=== PATIENT | female | born 1975 | race Caucasian/White ===

== ENCOUNTER 2022-05-12 16:58 | Emergency (ER) | payer BC, SELFPAY ==
[2022-05-12 17:13] VITALS: BP 137/83; PULSE 82; RESP 18; TEMP 36.3; O2SAT 100
--- NOTE | 2022-05-12 17:49 | ED.SKABFB ---
HPI - Skin/Abscess/Foreign Bdy General Chief complaint: Skin/Abscess/Foreign Body Stated complaint: rash on forehead Time Seen by Provider: 05/12/22 17:40 Source: patient Mode of arrival: ambulatory Limitations: no limitations History of Present Illness HPI narrative: Patient presents today complaining of redness and swelling between her eyebrows x4 days. Denies pain, but does report some itching. She has been taking some allergy medication without relief. History of diabetes. Denies history of staph infections, abscesses, boils. She has been recently plucking her eyebrows. Related Data Home Medications Medication Instructions Recorded Confirmed atorvastatin 40 mg tablet 40 mg PO DAILY 05/12/22 05/12/22 insulin aspart U-100 100 unit/mL See Rx Instructions .Route .COMPLEX 05/12/22 05/12/22 subcutaneous solution insulin degludec 100 unit/mL (3 34 unit subcut DAILY 05/12/22 05/12/22 mL) subcutaneous pen (Tresiba FlexTouch U-100 insulin) lisinopril 10 mg tablet 10 mg PO DAILY 05/12/22 05/12/22 metformin 500 mg tablet,extended 2,000 mg PO DAILY 05/12/22 05/12/22 release 24 hr Allergies Allergy/AdvReac Type Severity Reaction Status Date / Time niacin Allergy Unknown Flushing Verified 05/12/22 17:19 PMFSH Family History Family History Mother Diabetes mellitus Father Family history of colonic diverticulitis Other Cerebrovascular accident Family history of cardiovascular disease Family history of malignant neoplasm Family history of thyroid disease Social History Social History Smoking status: Current every day smoker Alcohol intake: current Comments At time of signature, I have reviewed and agree with nursing past medical, surgical, social and family history unless otherwise noted. Please see nursing chart for further information. There is no relevant family history pertinent to the presenting complaint Exam Narrative: GENERAL: Well-appearing, well-nourished, and in no acute distress. HEAD: Normocephalic, atraumatic. EYES: EOMI. No redness or drainage. Conjunctivae normal. ENT: Mucous membranes pink and moist. NECK: Normal AROM. CHEST: No respiratory distress. EXTREMITIES: Normal range of motion. No edema. SKIN: Warm, dry. Capillary refill normal. Normal skin turgor. 1.5 x1.5cm area of mild erythema and induration to the forehead, in between the eyebrows. No fluctuance. Three small superficial abrasions to this area as well. No pustules, vesicles, or drainage. Nontender to palpation. NEURO: No focal deficits. Alert and oriented x3. Gait steady. PSYCH: Normal affect. No signs of depression or anxiety. Course Course Level of Care: Express Care Visit Vital Signs Vital signs: Vital Signs Temperature 97.4 F L 05/12/22 17:13 Pulse Rate 82 05/12/22 17:13 Respiratory Rate 18 05/12/22 17:13 Blood Pressure 137/83 05/12/22 17:13 Pulse Oximetry 100 05/12/22 17:13 Oxygen Delivery Room Air 05/12/22 17:13 Temperature 97.4 F L 05/12/22 17:13 Pulse Rate 82 05/12/22 17:13 Respiratory Rate 18 05/12/22 17:13 Blood Pressure 137/83 05/12/22 17:13 Pulse Oximetry 100 05/12/22 17:13 Oxygen Delivery Room Air 05/12/22 17:13 Reviewed. Pt has been instructed to follow up with her PCP regarding her elevated blood pressure today. MDM - Skin/Abscess/Foreign Bdy Differential Diagnosis Differential diagnosis: Likely abscess of skin or subcutaneous tissue, dermatophytosis, cellulitis, eczema, impetigo and contact dermatitis Critical Care Time Critical Care Time Critical Care Time: No Discharge Plan Discharge Clinical Impression: Cellulitis of forehead Patient Disposition: Home, Self-Care Condition: Stable Instructions: Antibiotic Form, Cellulitis (ED) Additional Instructions: Please take the clindamycin as prescribed
== END 2022-05-12 17:56 | disposition home or self-care (01) ==
PROVIDERS: Emergency Provider Nurse Practitioner; PCP Nurse Practitioner
DX: L03.211 Cellulitis of face (principal); F17.200 Nicotine dependence, unspecified, uncomplicated
CPT/HCPCS: 99213; G0463

== ENCOUNTER 2023-08-22 21:06 | Emergency (ER) | payer BC, SELFPAY ==
--- NOTE | ~2023-08-22 | CT_ITS ---
EXAMINATION: CT abdomen pelvis w con DATE: 08/23/2023 00:37 INDICATION: Diffuse abdominal pain, nausea and vomiting TECHNIQUE: Computed tomography (CT) of the abdomen and pelvis was performed with 100 mL Omnipaque-350 intravenous contrast. Automated exposure control and iterative reconstruction technique were employe d. The dose-length product was 363.00 mGy-cm. COMPARISON: Pelvis CT dated 03/18/2018 FINDINGS: Mild mosaic attenuation at the bilateral lung bases. Heart size is normal. No pericardial or pleural effusion. Liver, gallbladder, spleen, pancreas, bilateral adrenal glands and kidneys are normal. Mild diverticulosis without adjacent inflammatory stranding to suggest diverticulitis. Small bowel and ap pendix are normal. There are several enhancing masses in the uterus most likely representing uterine fibroids. The largest measures 11.0 x 8.6 cm which is significantly increased since the prior study a t which time it measured 3.1 x 2.5 cm. The next largest measures 2.7 cm in maximal diameter. Bladder and bilateral adnexa are normal. No free intraperitoneal gas or fluid. No pathologically enlarged abd ominal or pelvic lymphadenopathy. . IMPRESSION: 1. No acute intra-abdominal/pelvic process. 2. Fibroid uterus with significant interval enlargement of a now 11 cm uterine fibroid. Reviewed, dictated and finalized at location A.
[2023-08-22 21:43] LABS: Glucose Point of Care 125 mg/dl (65-105)
[2023-08-22 21:57] VITALS: BP 115/57; PULSE 78; RESP 14; TEMP 36.7; O2SAT 99
[2023-08-22 22:27] LABS: Basophils Percent Auto 0.4 % (0.2-1.2); Eosinophils Percent Auto 0.4 % (0-4.4); Hemoglobin 8.5 g/dL (12.0-15.0); Immature Granulocyte Absolute 0.04 K/mm3 (0.00-0.031); Immature Granulocyte Percent A 0.4 % (0-0.5); Lymphocytes Absolute Auto 0.62 K/mm3 (0.9-3.2); Lymphocytes Percent Auto 6.9 % (18.3-44.2); Mean Corpuscular HGB Conc 30.4 g/dl (32-36); Mean Corpuscular Hemoglobin 25.1 pg (26-34); Mean Corpuscular Volume 82.8 fl (80-100); Mean Platelet Volume 11.6 fl (7.4-10.4); Monocytes Absolute Auto 0.4 K/mm3 (0.1-0.6); Monocytes Percent Auto 4.9 % (2.6-8.5); Neutrophils Absolute Auto 7.8 K/mm3 (1.3-6.7); Platelet Count Result 198 k/mm3 (150-375); Red Blood Count 3.38 M/mm3 (4.2-5.4); Red Cell Distribution Width 14.6 % (11.5-14.5); White Blood Count 8.9 K/mm3 (4.5-10.0)
[2023-08-22 22:36] LABS: Alanine Aminotransferase 15 U/L (6-35); Albumin Level 4.3 g/dL (3.5-5.1); Alkaline Phosphatase 74 U/L (38-126); Anion Gap 13 mmol/L (8-16); Aspartate Amino Transferase 25 U/L (14-36); Bilirubin,Total 0.3 mg/dL (0.2-1.3); Blood Urea Nitrogen 4 mg/dL (7-17); Calcium 8.9 mg/dL (8.4-10.2); Carbon Dioxide 19 mmol/L (22-30); Chloride 111 mmol/L (98-107); Estimated CRCL calculation 90 ml/min; Estimated Glomerular Filt Rate > 60; Glucose 79 mg/dL (65-110); Lipase 173 U/L (23-300); Potassium 3.1 mmol/L (3.4-5.0); Sodium 143 mmol/L (137-145)
[2023-08-22 23:33] VITALS: BP 104/64; PULSE 69; RESP 14; O2SAT 99
[2023-08-22 23:46] LABS: Magnesium 2.2 mg/dL (1.6-2.3)
[2023-08-22] MEDS: KCL 20 MEQ/SW 100 ML 100 ML 50 MEQ IVPB (23:48)
[2023-08-22] MEDS: SODIUM CHLORIDE 0.9% IV 1,000 ML 999 ML IV CONT (23:48)
[2023-08-23 00:36] LABS: Influenza A QL RT-PCR Negative (Negative); Influenza B QL RT-PCR Negative (Negative); RSV RNA, RT-PCR Negative (Negative); SARS-CoV-2 RNA PCR Negative (Negative)
--- NOTE | 2023-08-23 00:43 | ED.NAVMDI ---
HPI - Nausea/Vomiting/Diarrhea General Chief complaint: Nausea/Vomiting/Diarrhea Stated complaint: VOMITING/WEAKNESS Time Seen by Provider: 08/22/23 23:28 Source: patient Mode of arrival: EMS Limitations: no limitations History of Present Illness HPI Narrative: Patient is a 48-year-old female who presents the ED via EMS with report of nausea/vomiting. Patient reports has not felt well for the last 3 weeks. She reports having intermittent nausea and vomiting, usually upon waking up. Reports intermittent diarrhea, subjective fevers, urinary frequency. States she was recently started on mounjaro for her diabetes, but states the symptoms have been ongoing since before starting the mounjaro. Tonight, she was getting ready to eat dinner when she began having nausea and vomiting. She reported profuse vomiting. She then felt very weak and fatigued and states she was unable to get up off the ground at her house. EMS was then contacted. Patient is feeling improved currently. Denies further nausea. Reports lower and mid abdominal pain. Reports mild lightheadedness. Denies cough or cold symptoms, syncope, rectal bleeding, melena, chest pain, shortness of breath. Patient does admit to drinking 2 glasses of whiskey tonight. Patient is currently on her menstrual cycle. Denies possibility of . Related Data Home Medications Medication Instructions Recorded Confirmed insulin degludec 100 unit/mL (3 34 unit subcut DAILY 05/12/22 07/15/23 mL) subcutaneous pen (Tresiba FlexTouch U-100 insulin) lisinopril 10 mg tablet 10 mg PO DAILY 05/12/22 07/15/23 aspirin 81 mg tablet,delayed 81 mg PO DAILY 07/15/23 07/15/23 release (Adult Low Dose Aspirin) atorvastatin 40 mg tablet 40 mg PO QHS 07/15/23 07/15/23 cholecalciferol (vitamin D3) 1,250 1,250 mcg PO WEEKLY 07/15/23 07/15/23 mcg (50,000 unit) capsule insulin aspart U-100 100 unit/mL 10 unit subcut QPM 07/15/23 07/15/23 (3 mL) subcutaneous pen (Novolog FlexPen U-100 Insulin aspart) insulin syringe-needle U-100 1 mL 07/15/23 07/15/23 30 gauge x 5/16 metformin 500 mg tablet,extended 1,000 mg PO BID 07/15/23 07/15/23 release 24 hr paroxetine HCl [Paxil] 20 tablet PO 07/15/23 07/15/23 Allergies Allergy/AdvReac Type Severity Reaction Status Date / Time niacin Allergy Unknown Flushing Verified 07/15/23 08:10 Review of Systems Review of Systems: CONSTITUTIONAL: Reports subjective fever. CARDIOVASCULAR: Denies chest pain. RESPIRATORY: Denies dyspnea. GASTROINTESTINAL: See HPI. GENITOURINARY: See HPI. MUSCULOSKELETAL: Denies back pain, extremity pain, myalgia. NEUROLOGIC: Reports mild lightheadedness. Denies headache, numbness, or weakness. All systems reviewed & are unremarkable except as noted in HPI and below PMFSH Past Medical History Medical History Diabetes Surgical History Surgical History H/O myomectomy Family History Family History Mother Diabetes mellitus Father Family history of colonic diverticulitis Other Cerebrovascular accident Family history of cardiovascular disease Family history of malignant neoplasm Family history of thyroid disease Social History Social History Smoking status: Current every day smoker Alcohol intake: current Alcohol use details: Twice weekly Substance use: never Exam Narrative: GENERAL: Well appearing, obese with BMI of 30.3, non-toxic, in no acute distress. HEAD: Normocephalic, atraumatic. RESPIRATORY: Airway patent, respirations nonlabored. Clear to auscultation bilaterally, no rales, rhonchi, wheezing. CARDIOVASCULAR: Regular rate and rhythm ABDOMINAL: Soft, diffuse lower abdominal tenderness to palpation. Nondistended. Normoactive BS.
[2023-08-23 01:10] VITALS: PULSE 72; RESP 19; O2SAT 96
[2023-08-23] MEDS: SODIUM CHLORIDE 0.9% IV 1,000 ML 999 ML IV CONT (01:46)
[2023-08-23 02:16] LABS: Appearance Urine Clear (Clear); Bacteria Urine None Seen /hpf; Bilirubin Urine Negative (Negative); Blood Urine 1+ (Negative); Color Urine Yellow (Yellow); Glucose Urine UA Negative (Negative); Ketones Urine Negative (Negative); Leukocyte Esterase Ur Negative LEU/UL (Negative); Nitrate Urine Negative (Negative); Non Pathogenic Casts 0-2; Protein Urine Negative (Negative); RBC Urine 0-2 /hpf (0-2); Squamous Epithelial Cell Urine None Seen /hpf (Few); Urobilinogen Urine 0.2 mg/dL (<2.0); WBC Urine 0-5 /hpf (0-3); pH Urine 5.5 (5.0-9.0)
[2023-08-23 02:18] LABS: Add Urine Microscopic? YES; Specific Grav Ur 1.072 (1.001-1.035)
[2023-08-23] MEDS: POTASSIUM CHLORIDE 20 MEQ ER TABLET PO (02:22)
[2023-08-23 02:25] VITALS: BP 116/59; PULSE 60; RESP 16; O2SAT 99
[2023-08-23 02:45] VITALS: PULSE 71; RESP 19; O2SAT 98
[2023-08-23 03:00] VITALS: BP 90/54; PULSE 73; RESP 19; O2SAT 97
[2023-08-23 03:31] VITALS: BP 101/50; PULSE 71; RESP 14; O2SAT 97
[2023-08-23 03:46] VITALS: BP 107/62; PULSE 71; RESP 20; O2SAT 98
== END 2023-08-23 04:30 | disposition home or self-care (01) ==
PROVIDERS: Physician Assistant; Emergency Provider Emergency Medicine; PCP Nurse Practitioner
DX: K52.9 Noninfective gastroenteritis and colitis, unspecified (principal); E87.6 Hypokalemia; D64.9 Anemia, unspecified; Z20.822 Contact with and (suspected) exposure to COVID-19; E11.9 Type 2 diabetes mellitus without complications; F17.200 Nicotine dependence, unspecified, uncomplicated; Z79.85 Long-term (current) use of injectable non-insulin antidiabetic drugs; Z79.84 Long term (current) use of oral hypoglycemic drugs; Z79.4 Long term (current) use of insulin
CPT/HCPCS: 36415; 74177; 80053; 81025; 82948; 83690; 83735; 85025; 87637; 96361; 96365; 96366; 99284; A9270; J3480; J7030; Q9967

== ENCOUNTER 2024-10-17 20:52 | Emergency (ER) | payer BC, SELFPAY ==
--- NOTE | ~2024-10-17 | XR_ITS ---
EXAM: XR foot LT min 3V DATE: 10/17/2024 22:11 HISTORY: bruising, warmth and swelling. no injury . COMPARISON: None available. FINDINGS: Normal mineralization. No fracture or dislocation. No lytic or blastic lesion. Joint space s are maintained. Mild Achilles and plantar enthesopathy. No erosion or periosteal change. Forefoot s oft tissue swelling. IMPRESSION: No acute osseous finding in the left foot. Reviewed, dictated and finalized at location K.
--- OUTSIDE RECORDS SUMMARY | 2024-10-17 20:54 | XMS_ITS | Referral Summary ---
Author Organization [facility] Address [address] [place] [address] Care Team Providers Care Clerk Of Court Name Role Phone Sarita Liang GIOVANI Primary Care Provider [phone] Denver Trinidad DO Unavailable [phone] Allergies Active Allergy Reactions Criticality Noted Date Comments Niacin Hives Medium 11/07/2014 Niacin Unknown 05/12/2024 Medications atorvastatin (LIPITOR) 40 mg tablet Take 1 tablet (40 mg total) by mouth nightly Active lisinopriL (PRINIVIL,ZESTR IL) 10 mg tablet Take 1 tablet (10 mg total) by mouth nightly Active metFORMIN (GLUCOPHAGE) 500 mg tablet Take 2 tablets (1,000 mg total) by mouth 2 (two) times a day with meals Active insulin aspart (NovoLOG) 100 unit/mL (3 mL) pen for injection Inject 5 Units under the skin 3 (three) times a day Active PARoxetine (PAXIL) 20 mg tablet Take 1 tablet (20 mg total) by mouth nightly Active insulin degludec (TRESIBA) 100 unit/mL (3 mL) pen for injection Inject 0.24 mL (24 Units total) under the skin nightly Active ibuprofen (ADVIL,MOTRIN) 600 mg tabletIndicatio ns:Pain,Postope rative Acute Pain Take 1 tablet (600 mg total) by mouth every 6 (six) hours as needed for pain 40 tablet 1 4 Active oxyCODONE (ROXICODONE) 5 mg immediate release tabletIndicatio ns:Pain Take 1 tablet (5 mg total) by mouth every 6 (six) hours as needed for pain 4 Active senna-docusate (PERICOLACE) 8.6-50 mg Take 1 tablet by mouth 2 (two) times a day for 10 days 20 tablet 4 Active ferrous sulfate 325 mg (65 mg of elemental iron) tabletIndicatio ns:Iron Deficiency Anemia Take 1 tablet (325 mg total) by mouth daily with breakfast 30 tablet 4 05/27/20 25 Active Active Problems Problem Noted Date Diagnosed Date Acute blood loss anemia 05/27/2024 Status post abdominal hysterectomy 05/26/2024 Intramural leiomyoma of uterus 05/25/2024 Type 2 diabetes mellitus wit hout complication, with long-term current use of insulin 05/25/2024 Cigarette nicotine dependence without complicati on 05/25/2024 Social History Tobacco Use Types Packs/Day Years Used Date Smoking Tobacco: Every Day Cigarettes Tobacco Cessation:Ready to Q uit: Not Asked; Counseling Given: Not Answered [facility] Tresata Answer Date Recorded In the past 12 months has twidox, gas, oil, or water [facility] threatened to shut off services in your home? No 05/27/2024 Social Connection and Isolat ion Panel [NHANES] Answer Date Recorded In a typical week, how many times do you talk on the phone with family, friends, or neighbors? More than three times a week 05/27/2024 How often do you get togethe r with friends or relatives? More than three times a week 05/27/2024 How often do you attend chur or gnosticist services? 1 to 4 times per year 05/27/2024 Do you belong to any clubs o r organizations such as scientologist groups, unions, fraternal or athletic groups, or school groups? No 05/27/2024 How often do you attend meet ings of the clubs or organizations you belong to? Never 05/27/2024 Are you , , di vorced, , never , or living with a partner? Living with partner 05/27/2024 AUDIT-C Answer Date Recorded Q1: How often do you have a drink containing alc ohol? 2-3 times a week 05/20/2024 Q2: How many drinks containi ng alcohol do you have on a typical day when you are drinking? 1 or 2 05/20/2024 Q3: How often do you have si x or more drinks on one occasion? Less than monthly 05/20/2024 Overall Financial Resource Strain (CARDIA) Answe r Date Recorded How hard is it for you to pa y for the very basics like food, housing, medical care, and heating? Not very hard 05/27/2024 Hunger Vital Sign Answer Date Recorded Within the past 12 months, y ou worried that your food would run out before you got the money to buy more. Never true 05/27/20 24 Within the past 12 months, t he food you bought just didn't last and you didn't have money to get more. Never true 05/27/2024 PRAPARE - Transportation Answer Date Re corded In the past 12 months, has l ack of transportation kept you from medical appointments or from getting medications? No 05/09 In the past 12 months, has l ack of transportation kept you from meetings, work, or from getting things needed for daily living? No 05/27/2024 Housing Stability Vital Sign Answer Mauricio e Recorded In the last 12 months, was t here a time when you were not able to pay the mortgage or rent on time? No 05/27/2024 In the past 12 months, how m any times have you moved where you were living? 0 05/27/2024 At any time in the past 12 m [facility], were you homeless or living in a skilled nursing (including now)? No 05/27/2024 Personal Safety Answer Date Recorded Have you ever been in or are you currently in a harmful physical or emotional relationship or is someone making you feel afraid or unsafe? Denies 05/26/2024 Comments No Sex and Gender Information Value Date Recorded Sex Assigned at Not on file Legal Sex Female 10:04 AM GLOVE BRUSHER Gender Identity Female 05/24/2024 8:43 AM GLOVE BRUSHER Sexual Orientation Not on file Last Filed Vital Signs Vital Sign Reading Time Taken Comments Blood Pressure 130/75 05/28/2024 8:31 AM GLOVE BRUSHER Pulse 70 05/28/2024 5:00 AM GLOVE BRUSHER Temperature 37.1 C (98.8 F) 05/28/2024 8:31 AM GLOVE BRUSHER Respiratory Rate 18 05/28/2024 8:31 AM GLOVE BRUSHER Oxygen Saturation 97% 05/28/2024 8:31 AM GLOVE BRUSHER Inhaled Oxygen Concentration - - Weight 68.6 kg (151 lb 3.8 oz) 05/26/2024 3:59 P M GLOVE BRUSHER Height 154.9 cm (5' 1 ) 05/26/2024 3:59 PM GLOVE BRUSHER Body Mass Index 28.58 05/26/2024 3:59 PM GLOVE BRUSHER Plan of Treatment Not on file Procedures Procedure Name Priority Date/Time Associated Diagnosis Comments EGFR Routine 05/27/2024 4:21 AM GLOVE BRUSHER HEMOGLOBIN A1C Routine 05/23/2024 10:03 AM GLOVE BRUSHER Preop testing from Last 3 Months or Most Recently Relevant to Health Maintenance Results * eGFR (05/27/2024 4:21 AM GLOVE BRUSHER) eGFR >90 >=60 mL/min/1. 73 m2 Comment: Interpretive Data Reference Interval Normal >/= 90 mL/min/1.73m2 Mildly decreased* 60 - 89 mL/min/1.73m2 Mildly to moderately decreased 45 - 59 mL/min/1.73m2 Moderately to severely decreased 30 - 44 mL/min/1.73m2 Severely decreased 15 - 29 mL/min/1.73m2 Kidney Failure < 15 mL/min/1.73m2 *Relative to young adult level Estimated glomerular filtration rate is determined by the 2020 CKD-EPI equation recommended by the National Kidney Foundation (A Unifying Approach to GFR Estimation: Recommendations of the NKF-ASK Task Force on Reassessing the Inclusion of Race in Diagnosing Kidney Disease, JASN 2020). The CKD-EPI equation should not be used for patients with unstable renal function and has not been validated in children and those over 70. Current interpretive data was last reviewed 2021. Testing performed by: [facility], [address] [place] [address], [place]., [address] Blood 05/27/2024 4:21 AM GLOVE BRUSHER 05/27/2024 4:50 AM GLOVE BRUSHER Katerin Barksdale MD LAB BLOOD ORDERABLES Amber l Result Performing Organization Address [facility]/ZIP Co de Phone Number [place] [id number] [place] [address] * (ABNORMAL) Hemoglobin A1c (05/23/2024 10:03 AM GLOVE BRUSHER) Hgb A1C 6.6(H) 4.0 - 5.6 % Comment:Testing performed by : [address] [address] Estimated Average Glucose 143 mg/dL [facility] Comment: The ADA recommends reporting an estimated Average Glucose (eAG) with all Hemoglobin A1c results using the equation derived from a study of 507 normal and diabetic adults. Minority populations were underrepresented and children were not included. (Diabetes Care 31:3336-3291, 2008). The eAG is not equivalent to a fasting glucose. Testing performed by: [address] [address] Blood 05/23/2024 10:0 3 AM GLOVE BRUSHER 05/23/2024 10:15 AM GLOVE BRUSHER Narrative [facility] - 05/23/2024 10:58 AM GLOVE BRUSHER PRE SURGICAL TESTING ONLY--05/26/2024-TOTAL ABDOMINAL HYSTERECTOMY WITH BILATERAL SALPINGECTOMY: -Surgeons and Role: * Katerin Barksdale MD - Primary- Joaquin Cuellar MD LAB BLOOD ORDERABLES Final Resul t Performing Organization Address 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
--- OUTSIDE RECORDS SUMMARY | 2024-10-17 20:54 | XMS_ITS | Clinical Summary ---
Author Organization [facility] Address [facility] [place] [address] Care Team Providers Care Actor Understudy Name Role Phone Gladys Liang GIOVANI Primary Care Provider [phone] Allergies Active Allergy Reactions Criticality Noted Date Comments Niacin Unknown,Hives Medium 11/07/2014 Medications aspirin EC (ECOTRIN) 81 MG tablet Take 1 tablet (81 mg total) by mouth. Active Lancets Misc by Other route daily. 12/25/19 17 Active Insulin Syringe-Needle U-100 (INSULIN SYRINGE 1CC/30GX5/16 ) 30G X 5/16 1 ML MiscIndications:Uncontro lled type 2 diabetes mellitus with hyperglycemia (CMS/HCC HHS/HCC) TID 300 each 3 09/20/19 22 Active metFORMIN ER (GLUCOPHAGE-XR) 500 MG 24 hr tabletIndications:Uncont rolled type 2 diabetes mellitus with hyperglycemia (CMS/HCC HHS/HCC) TAKE 4 TABLETS BY MOUTH DAILY DIRECTED 180 tablet 1 01/07/20 22 Active B-D ULTRAFINE III SHORT PEN 31G X 8 MM MiscIndications:Uncontro lled type 2 diabetes mellitus with hyperglycemia (CMS/HCC HHS/HCC) USE DIRECTED DAILY 100 each 3 02/13/20 22 Active Blood Glucose Monitoring Suppl (ONE TOUCH ULTRA 2) w/Device KitIndications:Uncontrol led type 2 diabetes mellitus with hyperglycemia (CMS/HCC HHS/HCC) 1 each by Other route daily. 1 kit 08/07/19 23 Active atorvastatin (LIPITOR) 40 MG tabletIndications:Pure hypertriglyceridemia TAKE 1 TABLET(40 MG) BY MOUTH EVERY NIGHT AT BEDTIME 90 tablet 3 03/23/20 23 Active lisinopril (PRINIVIL) 10 MG tabletIndications:Hypert ension, unspecified type TAKE 1 TABLET(10 MG) BY MOUTH DAILY 90 tablet 3 03/23/20 23 Active insulin aspart (NOVOLOG) 100 UNIT/ML injection (VIAL) Inject into the skin 3 (three) times daily before meals. Active Insulin Degludec (TRESIBA) 100 UNIT/ML Solution Active azithromycin (ZITHROMAX) 250 MG tabletIndications:Upper respiratory tract infection, unspecified type Take 2 tablets by mouth on day one then 1 daily for four days. 6 tablet 09/10/19 Active PARoxetine (PAXIL) 30 MG tabletIndications:Anxiet y Take 1 tablet (30 mg total) by mouth every morning. 90 tablet 1 09/10/19 25 025 Active Active Problems Problem Noted Date Diagnosed Date Primary hypertension 02/04/2022 Uncontrolled type 2 diabetes mellitus with hyperglycemia ([facility]) 12/13/2018 Cfbijtj-xj-snj 11/25/2018 Intramural leiomyoma of uterus 03/01/2018 S/P myomectomy 03/01/2018 Abnormal mammogram 12/01/2017 Nodular goiter 04/01/2017 Neuropathy 01/22/2017 Numbness of right anterior thigh 12/22/2016 URI, acute 07/23/2016 Bloating 07/17/2016 Sciatic pain, right 04/24/2016 Vitamin D deficiency 04/20/2015 GERD (gastroesophageal reflux disease) 5 Irritable bowel 04/11/2015 Fatigue 11/28/2014 Hand tingling 11/28/2014 Leg hematoma 11/28/2014 Dyslipidemia 04/12/2014 Fatty liver 04/12/2014 Resolved Problems Problem Noted Date Diagnosed Date Resolved Date Pure hyperglyceridemia 12/13/201804/23 Hyperlipidemia 04/28/2016 07/23/2022 Elevated TSH 04/28/2016 07/23/2022 Increased glucose level 04/28/201607/09 Encounter for screening mamm ogram for malignant neoplasm of breast 04/24/2016 02/24/2022 Diabetes mellitus ([facility]) 04/12/2014 07/23/2022 Encounters Date Type Department Care Team Description 09/09/2024 9:40 AM CDT Office Visit [address] [address] Gladys Liang NP Shoulder (Pt c/o of collar bone pain for about two weeks. 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 and has been having the pain since) 09/09/2024 Travel 09/06/[address] [address] Gladys Liang NP Information from Last 3 Months Immunizations Immunization Administration Dates Next Due Fluzone 6 Months+ Quad (0.5 mL Prefilled Syringe ) 05/16/2022,03/29/2020 MMR 10/13/2017 MMR (Generic) 10/13/2017 Pneumococcal (Pneumovax 23) 11/23/2019 Pneumococcal(Ppv 23)Aka Pneumovax 11/23/2019 Family History Medical History Relation Comments Diabetes Father Diabetes Mother Thyroid Disease Sister Relation Status Comments Father Mother Alive Sister Social History Tobacco Use Types Packs/Day Years Used Date Smoking Tobacco: Some Days Cigarettes 0.5 15 Smokeless Tobacco: Never Tobacco Cessation:Ready to Q uit: Yes; Counseling Given: Yes Alcohol Use Standard Drinks/Week Comments Yes 8 (1 standard drink = 0.6 oz pur e alcohol) socially PHQ-2 Answer Date Recorded Patient Health Questionnaire-2 Score 4 09/09/2024 Comments No Sex and Gender Information Value Date Recorded Sex Assigned at Female 09/09/2024 9:49 AM CDT Legal Sex Female 8:01 PM CDT Gender Identity Female 09/09/2024 9:49 AM CDT Sexual Orientation Not on file Last Filed Vital Signs Vital Sign Reading Time Taken Comments Blood Pressure 120/78 09/09/2024 10:09 AM CDT Pulse 83 09/09/2024 9:55 AM CDT Temperature 36.4 C (97.6 F) 09/09/2024 9:55 AM CDT Respiratory Rate 16 09/09/2024 9:55 AM CDT Oxygen Saturation 99% 09/09/2024 9:55 AM CDT Inhaled Oxygen Concentration - - Weight 69.4 kg (153 lb) 09/09/2024 9:55 AM CDT Height 154.9 cm (5' 1 ) 09/09/2024 9:55 AM CDT Body Mass Index 28.91 09/09/2024 9:55 AM CDT Plan of Treatment Upcoming Encounters Date Type Department Care Team (Tammy flores Contact Info) Description 12/14/2024 8:00 AM CDT Office Visit [facility] - [place] [address] [place] [address] Gladys Liang NP [address] [place] [address] Health Maintenance Due Date Last Done Comments Colorectal Cancer Screening Colonoscopy (10 Years) 1976 Kidney Health Evaluation 1976 Diabetes: Retinopathy Eye Exam 1994 DTaP, Tdap and Td Vaccines (1 - Tdap) 1995 Hepatitis B Vaccines (1 of 3 - 19+ 3-dose series) 1995 Pneumococcal Vaccine: Pediatrics (0 to 5 Years) and At-Risk Patients (6 to 49 Years) (2 of 2 - PCV) 11/22/2020 11/23/2019, 11/23/2019 COVID-19 Vaccine (1 - 2023- season) 2024 Mammogram Screening 04/26/2024 04/26/2022, 12/14/2019, 12/03/2017, Additional history exists Annual Physical 06/18/2024 06/18/2023 Lipid Panel 06/18/2024 06/18/2023, 07/10, 01/29/2022, Additional history exists Hemoglobin A1C 11/21/2024 05/23/2024, 06/08, 07/31/2022, Additional history exists Hepatitis C Completed 04/24/2016, 04/08, 04/11/2015 PHQ-2 (Physician [place]) Completed 09/09/2024 Meningococcal B Vaccine Aged Out No l onger eligible based on patient's age to complete this topic Meningococcal Vaccine Aged Out No rosemary michel eligible based on patient's age to complete this topic RSV Immunizations Under 20 Months Aged Out No longer eligible based on patient's age to complete this topic Procedures Procedure Name Priority Date/Time Associated Diagnosis Comments LIPID PANEL Routine 06/18/2023 9:51 AM LOGGING OPERATIONS INSPECTOR Uncontrolled type 2 diabetes mellitus with hyperglycemia Other fatigue HEMOGLOBIN, GLYCOSYLATED Routine 06/18/2023 Uncontrolled type 2 diabetes mellitus with hyperglycemia MG SCREENING W SHAHEED HENRY DIGI Routine 04/26/2022 11:14 AM LOGGING OPERATIONS INSPECTOR Encounter for screening mammogram for malignant neoplasm of breast HEPATITIS C ANTIBODY Routine 04/24/2016 9:30 AM LOGGING OPERATIONS INSPECTOR from Last 3 Months or Most Recently Relevant to Health Maintenance Results * (ABNORMAL) LIPID PANEL (06/18/2023 9:51 AM LOGGING OPERATIONS INSPECTOR) CHOLESTEROL 145 100 - 199 mg/dL [facility] 1 TRIGLYCERIDES 162(H) 0 - 149 mg/dL [facility] HDL 41 >39 mg/dL [facility] 1 VLDL CALCULATION 28 5 - 40 mg/dL [facility] 1 LDL (CALCULATED) 76 0 - 99 mg/dL [facility] 1 06/18/2023 9:51 AM LOGGING OPERATIONS INSPECTOR 06/18/2023 Narrative [facility] - 06/20/2023 2:09 PM LOGGING OPERATIONS INSPECTOR Performed at: 01 - [facility] [address] [id number] Tan Room Supervisor: Chip Ayala PhD, Phone: [phone] Gladys Liang NP LABORATORY Final Result [facility] [address] [place] [address] [facility] * A1C (BACK OFFICE) (06/18/2023) HGB A1C 6.4 % [facility] 06/18/2023 Gladys Liang NP LABORATORY Final Result Performing Organization Address City/[facility]/ZIP Co de Phone Number [facility] [address] [place] [address], [place] [phone] * MG SCREENING W SHAHEED HENRY DIGI (04/26/2022 11:14 AM LOGGING OPERATIONS INSPECTOR) Anatomical Region Laterality Modality Breast Bilateral Mammography 04/28/2022 10:2 8 AM LOGGING OPERATIONS INSPECTOR Narrative 04/28/2022 10:28 AM LOGGING OPERATIONS INSPECTOR EXAMINATION: Digital bilateral screening mammogram with 3-D tomosynthesis EXAM DATE/TIME: 04/26/2022 10:54 AM REASON FOR EXAM: screening COMPARISON: December 2019, November 2017 TECHNIQUE: Digital screening mammography of both breasts was performed in addition to 3-D Tomosynthesis technique. This study was read with the assistance of a computer-aided detection system. TISSUE DENSITY: There are scattered areas of fibroglandular density. FINDINGS: No suspicious masses, malignant appearing calcifications, skin thickening or other abnormalities are present. No significant change from the prior exam. =====IMPRESSION:===== No mammographic findings suggestive of malignancy ASSESSMENT: ACR BI-RADS 2 - BENIGN FINDING(S) Recommendation: 1: Routine Screening Bilateral COMMENTS: Ordered By: GLADYS LIANG Interpreted By: Naif Reilly MD, 04/28/2022 10:28 AM Gladys Liang NP MAMMO Final Result * HEPATITIS C ANTIBODY (04/24/2016 9:30 AM LOGGING OPERATIONS INSPECTOR) HEPATITIS C AB NON-REACTIVE TESTING PERFORMED AT [address] [address] NR [facility] TO EPIC CONVERSION 04/24/2016 9:30 AM LOGGING OPERATIONS INSPECTOR 04/24/2016 9:30 AM LOGGING OPERATIONS INSPECTOR Narrative [facility] EP[facility] CONVERSION - 04/25/2016 5:52 PM LOGGING OPERATIONS INSPECTOR Result Communication: Call patient with results Gladys Liang [facility] Final Result [facility] TO EP[facility] CONVERSION from Last 3 Months or Most Recently Relevant to Health Maintenance Insurance [facility] Care Teams Actor Understudy Relationship Specialty Start Date End Date [place] [address] PCP - General NURSE PRACTITIONER 11/23/19
--- OUTSIDE RECORDS SUMMARY | 2024-10-17 20:54 | XMS_ITS | Clinical Summary ---
Author Organization [facility] Address [address] [place] [address] Care Team Providers Care Brain Surgeon Name Role Phone Sarita Liang GIOVANI Primary Care Provider [phone] Denver Trinidad DO Unavailable [phone] Allergies Active Allergy Reactions Criticality Noted Date [...] Cigarette nicotine dependence without complicati on 05/25/2024 Surgical History Surgery Date Site/Laterality Comments HEMORROIDECTOMY MYOMECTOMY ABDOMINAL APPROACH Medical History Medical History Date Comments Diabetes (HCC) Type 2 diabetes mellitus (HCC) Social History Tobacco Use Types Packs/Day Years Used Date Smoking Tobacco: Every Day Cigarettes Tobacco Cessation:Ready to Q uit: Not Asked; Counseling Given: Not Answered [facility] [employer] Answer Date Recorded In the past 12 months has e [employer], gas, oil, or water [employer] [place] threatened to shut off services in your [...] 05/27/2024 How often do you attend chur ch or scientology services? 1 to 4 times per year 05/27/2024 Do you belong to any clubs o r organizations such as rastafari groups, unions, fraternal or athletic groups, or [...] any time in the past 12 [facility], were you homeless or living in a snf (including now)? No 05/27/2024 Personal Safety Answer Date Recorded Have you ever been in or are you currently in a harmful physical or emotional relationship or is someone making you feel afraid or unsafe? Denies 05/26/2024 Comments No Sex and Gender Information Value Date Recorded Sex Assigned at Not on file Legal Sex Female 10:04 AM SCARF GLUER Gender Identity Female 05/24/2024 8:43 AM SCARF GLUER Sexual Orientation Not on file Obstetrics History Last Filed Vital Signs Vital Sign Reading Time Taken Comments Blood Pressure 130/75 05/28/2024 8:31 AM SCARF GLUER Pulse 70 05/28/2024 5:00 AM SCARF GLUER Temperature 37.1 C (98.8 F) 05/28/2024 8:31 AM SCARF GLUER Respiratory Rate 18 05/28/2024 8:31 AM SCARF GLUER Oxygen Saturation 97% 05/28/2024 8:31 AM SCARF GLUER Inhaled Oxygen Concentration - - Weight 68.6 kg (151 lb 3.8 oz) 05/26/2024 3:59 P M SCARF GLUER Height 154.9 cm (5' 1 ) 05/26/2024 3:59 PM SCARF GLUER Body Mass Index 28.58 05/26/2024 3:59 PM SCARF GLUER Plan of Treatment Health Maintenance Due Date Last Done Comments Albumin Creatinine Ratio, Urine 1976 Cervical Cancer Screening 1976 Colon Cancer Screening-Colonoscopy 1976 Depression Screening 1976 Hepatitis C Screening 1976 Dilated Eye Exam 1976 Foot Exam 1976 DTaP/Tdap/Td Vaccine (1 - Tdap) 1987 Hepatitis B Screening 1994 Regular Well Visit/Exam 18-64 1994 Pneumococcal vaccine <65 (2 of 2 - PCV) 11/22/2020 11/23/2019 Breast Cancer Screening-Mammogram 04/26/2023 04/26/2022, 04/26/2022, 12/14/2019, Additional history exists Covid-19 Vaccine (6 - 2023-2 5 season) 2024 03/09/2023, 03/27/2022, 05/30/2021, Additional history exists Lipid Panel 06/18/2024 06/18/2023 Hemoglobin A1C 11/21/2024 05/23/2024 Influenza Vaccine (Season Ended) 2025 05/16/20 22, 03/29/2020 eGFR 05/27/2025 05/27/2024, 05/23/2024 Procedures Procedure Name Priority Date/Time Associated Diagnosis Comments EGFR Routine 05/27/2024 4:21 AM SCARF GLUER HEMOGLOBIN A1C Routine 05/23/2024 10:03 AM SCARF GLUER Preop testing from Last 3 Months or Most Recently Relevant to Health Maintenance Results * eGFR (05/27/2024 4:21 AM SCARF GLUER) eGFR >90 >=60 mL/min/1. 73 m2 Comment: [...] was last reviewed 2021. Testing performed by: [address] [address] Blood 05/27/2024 4:21 AM SCARF GLUER 05/27/2024 4:50 AM SCARF GLUER us Katerin Barksdale MD LAB BLOOD ORDERABLES Amber l Result [facility] [address] [facility] Department [place] [address] * (ABNORMAL) Hemoglobin A1c (05/23/2024 10:03 AM SCARF GLUER) Hgb A1C 6.6(H) 4.0 - 5.6 % Comment:Testing performed by : [address] [address] Estimated Average Glucose 143 mg/dL [facility] Comment: The ADA recommends reporting an estimated Average Glucose (eAG) with all Hemoglobin A1c results using the equation derived from a study of 507 normal and diabetic adults. Minority populations were underrepresented and children were not included. (Diabetes Care 31:9711-0462, 2007). The eAG is not equivalent to a fasting glucose. Testing performed by: [facility], [address] [place] [address], [place]., [address] Blood 05/23/2024 10:0 3 AM SCARF GLUER 05/23/2024 10:15 AM SCARF GLUER May RICARDO - 05/23/2024 10:58 AM SCARF GLUER PRE SURGICAL TESTING ONLY--05/26/2024-TOTAL ABDOMINAL HYSTERECTOMY WITH BILATERAL SALPINGECTOMY: -Surgeons and Role: * Katerin Barksdale MD - Primary- us Joaquin Cuellar MD LAB BLOOD ORDERABLES Final Resul t [facility] [address] [facility] Department [place] [address] from Last 3 Months or Most Recently Relevant to Health Maintenance Insurance [place] Advance Directives For more information, please contact: [phone] Documents on File Type Date Recorded Patient Board Runner Expl anation ADVANCE DIRECTIVE 05/26/2024 9:58 AM Sharif r of Production Line Manager-Medical * Full Code (Latest Code Status on File) Date Activated Date Inactivated Comments 05/26/2024 3:49 PM 05/28/2024 2:48 PM Care Teams Brain Surgeon Relationship Specialty Start Date End Date [place] [address] PCP - General Marine Operations Coordinator 05/23/24 [place] [address] 05/13/24
--- OUTSIDE RECORDS SUMMARY | 2024-10-17 20:55 | XMS_ITS | Clinical Summary ---
Author Organization [facility] Project Manager Address [address] [place] [address] Care Team Providers Care Manager Motor Name Role Phone Denver Trinidad Primary Care Provider Source Comments [facility] Project Manager,non-owned Affiliates and Associated Physician Practices is amultiple site organization consisting of ambulatory clinics and hospital sitesin [place], [place], [place] and [place]. This disclosure is being madepursuant to the Care Everywhere program and may not contain all information available regarding this patient. Last updated 18.[facility] Project Manager Allergies Active Allergy Reactions Criticality Noted Date Comments Niacin Urticaria Medium 10/13/2017 Medications * Be aware that medications may not be up to date on this document. Alwaysverify current medications with the patient. NOVOLOG vial INJ 20 UNITS SC QAM AND 10 UNITS QPM WITH SUPPER 1 12/25/2017 Active YURIDIA CONTOUR NEXT TEST test strip once daily 2 10/16/2017 Active NOVOLIN N vial INJECT 14 UNITS UNDER THE SKIN QAM AND 20 UNITS QPM B SUPPER 1 12/28/2017 Active Insulin Syringe-Needle U-100 (INSULIN SYRINGE 1CC/30GX5/16 ) 30G X 5/16 1 ML MISC USE TO INJECT UTD 3 01/11/2018 Active metFORMIN ER 24hr (GLUCOPHAGE XR) 500 MG tablet TK 1 T PO BID 1 01/05/2018 Active Aspirin (ASPIR-81 PO) Take 81 mg by mouth once daily Active Active Problems Problem Noted Date Diagnosed Date Gugntzf-ty-pzo 11/25/2018 Intramural leiomyoma of uterus 03/01/2018 S/P myomectomy 03/01/2018 Immunizations Immunization Administration Dates Next Due MMR 10/13/2017 Family History Medical History Relation Name Comments CAD (Coronary Artery Disease) Father Diabetes - Type 2 Father Diabetes - Type 2 Maternal Grandmother Diabetes - Type 1 Mother Relation Name Status Comments Father Maternal Grandmother Mother Alive Social History Tobacco Use Types Packs/Day Years Used Date Smoking Tobacco: Former Cigarettes Smokeless Tobacco: Never Alcohol Use Standard Drinks/Week Comments No 0 (1 standard drink = 0.6 oz pur e alcohol) Comments No Sex and Gender Information Value Date Recorded Sex Assigned at Not on file Legal Sex Female 6:13 PM CDT Gender Identity Not on file Sexual Orientation Not on file Last Filed Vital Signs Vital Sign Reading Time Taken Comments Blood Pressure 141/91 11/25/2018 1:38 PM CDT Pulse 92 11/25/2018 1:38 PM CDT Temperature 37.1 C (98.7 F) 11/25/2018 1:38 PM CDT Respiratory Rate 18 03/02/2018 11:53 AM CDT Oxygen Saturation 98% 11/25/2018 1:38 PM CDT Inhaled Oxygen Concentration - - Weight 78 kg (172 lb) 11/25/2018 1:38 PM CDT Height 154.9 cm (5' 1 ) 11/25/2018 1:38 PM CDT Body Mass Index 32.5 11/25/2018 1:38 PM CDT Plan of Treatment Health Maintenance Due Date Last Done Comments COLOGUARD (AGES 45-75) - COLON CA SCREENING 1976 COLON MONITORING 1976 COLONOSCOPY - COLON CA SCREENING 1976 CT COLONOGRAPHY - COLON CA SCREENING 1976 Colorectal Cancer Screening 1976 FIT - COLON CA SCREENING 1976 FLEX SIG - COLON CA SCREENING 1976 LIPID TESTING 1976 MAMMOGRAM 1976 HIV SCREENING 1991 HEPATITIS C SCREENING 07/28/1994 DTAP/TDAP/TD VACCINES (1 - Tdap) 1995 HEPATITIS B VACCINE (1 of 3 - 19+ 3-dose series) 1995 SCREENING FOR DIABETES 03/02/2021 8, 03/02/2018, 03/02/2018, Additional history exists COVID-19 VACCINE (1 - 2023- season) 2024 DEPRESSION SCREENING 06/08/2024 INFLUENZA VACCINE (Season Ended) 2025 ZOSTER VACCINE (1 of 2) 2026 HIB VACCINE Aged Out No longer eligi ble based on patient's age to complete this topic HPV VACCINE Aged Out No longer eligi ble based on patient's age to complete this topic MENINGOCOCCAL (Group B) VACCINE SHARED DECISION-MAKING Aged Out No longer eligible based on patient's age to complete this topic MENINGOCOCCAL GROUPS A/C/Y/W VACCINE Aged Out No longer eligible based on patient's age to complete this topic PNEUMOCOCCAL VACCINE Aged Out No long er eligible based on patient's age to complete this topic Procedures Procedure Name Priority Date/Time Associated Diagnosis Comments GLUCOSE - POINT OF CARE Routine 03/02/2018 12:08 AM CDT from Last 3 Months or Most Recently Relevant to Health Maintenance Results * (ABNORMAL) GLUCOSE - POINT OF CARE (03/02/2018 12:08 AM CDT) [facility] Glucose WB/POC 147(H) 70 - 106 mg/dL 03/02/2018 8:08 AM CDT [facility] Blood BLOOD SPECIMEN / Unknown 03/02/2018 12:08 AM CDT 03/02/2018 8:08 AM CDT Reinaldo Joshua MD LAB - POINT OF CARE ORDERABLES Final Result [facility] [address] [place] [address] from Last 3 Months or Most Recently Relevant to Health Maintenance Insurance ANTHEM ANTHEM Advance Directives Documents on File Type Date Recorded Patient Physician Executive Expl anation Adv Directive/Living Will/POA 03/03/2018 6:11 PM * Full Code (Latest Code Status on File) Date Activated Date Inactivated Comments 03/01/2018 5:51 PM 03/02/2018 2:32 PM Care Teams Manager Motor Relationship Specialty Start Date End Date Denver Trinidad DO PCP - General 01/27/18
--- OUTSIDE RECORDS SUMMARY | 2024-10-17 20:55 | XMS_ITS | Data Portability ---
Author Organization [facility] , [facility] Address [address] [place] [address] Assessment No assessment recorded. Plan of Treatment Reminders Order Date Submit Date Provider Last Modified By Organization Details Last Modified Time Details Appointments None recorded. Lab HbA1c (hemoglobin A1c), blood 2024 025 [employer] [facility], [address] [place], [address], 5 12:42:42 CMP, serum or plasma 2024 025 [facility], [address] [place], [address], 5 11:38:31 CBC 2024 025 [employer] [facility], [address] [place], [address], 5 12:42:42 hemoglobin A1c, QN, blood 2023 024 [employer] [facility], [address] [place] [address], [address], 4 12:01:22 biopsy, tissue - history of fibroids and abnl uterine bleeding 2023 024 [facility], [address] [place], [address], 4 19:07:14 test, urine 2023 024 [email or web address] [facility], [address], [place], [address], 10:00:57 CBC w/ auto diff 2023 024 CHARLEEN [facility], [address] [place], [address], 12:49:25 Referral None recorded. Procedures None recorded. Surgeries None recorded. Imaging None recorded. Medication Orders None recorded. Patient TargetsNo targets recorded. Patient InstructionsNo instructions recorded. Reason for Referral None Reported. Results Created Date Observation Date Name Description Value Unit Range Abnormal Flag Note LastModifiedBy Organization Detail LastModifiedTime 04/26/2004/27/2024 HEMOG LOBIN A1C hemoglobin A1C 6.2 % <5.7 high The refer ence range for HbA1c is indic ated in the table below . Sugge sted Diagn osis =6.5% Consi stent with diabe aisha 5.7 6.4% Consi stent with incre ased risk for diabe aisha (pred iabet ic) <5.7% Consi stent with the absen ce of diabe aisha Not Available [facility] [address] [place], [address], 04/27/2024 12:01:22 04/26/20 24 04/27/2024 CBC (INCL UDES DIFF/ PLT) WBC 7.6 thous and/u L 4.0 - 9.8 normal Not Available [facility] [address] [place], [address], 04/27/2024 12:49:25 04/26/20 24 04/27/2024 CBC (INCL UDES DIFF/ PLT) RBC 4.7 shaniqua on/uL 3.9 - 4.9 normal Not Available [facility] [address] [place], [address], 04/27/2024 12:49:25 04/26/20 24 04/27/2024 CBC (INCL UDES DIFF/ PLT) hemoglobin 11.5 g/dL 11.8 - 14.8 low Not Available [facility] [address] [place] [address], [address], 04/27/2024 12:49:25 04/26/20 24 04/27/2024 CBC (INCL UDES DIFF/ PLT) hematocrit 39.3 % 35.5 - 44.0 normal Not Available [address], [address], 04/27/2024 12:49:25 04/26/20 24 04/27/2024 CBC (INCL UDES DIFF/ PLT) MCV 82.9 fL 82.0 - 99.0 normal Not Available [address], [address], 04/27/2024 12:49:25 04/26/20 24 04/27/2024 CBC (INCL UDES DIFF/ PLT) MCH 24.3 pg 27.2 - 32.6 low Not Available [facility] [address] [place] [address], [address], 04/27/2024 12:49:25 04/26/20 24 04/27/2024 CBC (INCL UDES DIFF/ PLT) MCHC 29.3 g/dL 31.5 - 35.5 low Not Available [address], [address], 04/27/2024 12:49:25 04/26/20 24 04/27/2024 CBC (INCL UDES DIFF/ PLT) RDW-CV 15.7 % 11.5 - 14.5 high Not Available [facility] [address] [place] [address], [address], 04/27/2024 12:49:25 04/26/20 24 04/27/2024 CBC (INCL UDES DIFF/ PLT) platelet 190 thous and/u L 140 - 350 normal Not Available [facility] [address] [place] [address], [address], 04/27/2024 12:49:25 04/26/20 24 04/27/2024 CBC (INCL UDES DIFF/ PLT) MPV 12.3 fL 9.3 - 12.4 normal Not Available [address], [address], 04/27/2024 12:49:25 04/26/20 24 04/27/2024 CBC (INCL UDES DIFF/ PLT) absolute neutrophil 5.72 thous and/u L 1.90 - 7.00 normal Not Available [address], [address], 04/27/2024 12:49:25 04/26/20 24 04/27/2024 CBC (INCL UDES DIFF/ PLT) absolute lymphocyte 1.14 thous and/u L 0.70 - 4.50 normal Not Available [address], [address], 04/27/2024 12:49:25 04/26/20 24 04/27/2024 CBC (INCL UDES DIFF/ PLT) absolute monocyte 0.50 thous and/u L 0.10 - 1.30 normal Not Available [address], [address], 04/27/2024 12:49:25 04/26/20 24 04/27/2024 CBC (INCL UDES DIFF/ PLT) absolute eosinophil 0.16 thous and/u L <0.70 normal Not Available [address], [address], 04/27/2024 12:49:25 04/26/20 24 04/27/2024 CBC (INCL UDES DIFF/ PLT) absolute basophil 0.05 thous and/u L <0.20 normal Not Available [address], [address], 04/27/2024 12:49:25 04/26/20 24 04/27/2024 CBC (INCL UDES DIFF/ PLT) absolute immature granulocyte 0.01 thous and/u L <0.03 normal Not Available [address], [address], 04/27/2024 12:49:25 04/26/20 24 04/29/2024 TISSU E PATHO LOGY clinical information Menom etror rhagi a, histo ry of fibro ids and abnl uteri ne bleed ing Not Available [facility] [address] [place], [address], 04/29/2024 19:07:13 04/26/20 24 04/29/2024 TISSU E PATHO LOGY pathologist Stalin orlando MD Board Certi fied in Anato trorey Patho logy and Clini jj Patho logy (elec troni c signa ture) Not Available [facility] [address] [place], [address], 04/29/2024 19:07:13 04/26/20 24 04/29/2024 TISSU E PATHO LOGY A source Endom etriu m, biops y Not Available [facility] [address] [address] , [place], [address], 04/29/2024 19:07:13 04/26/20 24 04/29/2024 TISSU E PATHO LOGY A gross description Speci men is recei rony in 10% neutr al buffe red forma doroteo, label ed with multi ple patie nt ident ifier s and consi sts of multi ple fragm ents of soft tissu e aggre gatin g to 1.8 x 0.6 x 0.1 cm, irreg ular in shape and magallon-b rown in color . The speci men is entir alexa submi tted in one casse tte. Gross exam( s) perfo rmed at: [facility] [place] MB[facility] [address] [place] [address] [place] [address] Labor atory Direc tor: FARTUN Wilson MD Not Available [facility] [address] [place], [address], 04/29/2024 19:07:13 04/26/20 24 04/29/2024 TISSU E PATHO LOGY A diagnosis Fragm ents of proli ferat jay jay endom etriu m, admix ed with blood . Not Available [facility] [address] [place], [address], 04/29/2024 19:07:13 04/26/20 24 04/29/2024 TISSU E PATHO LOGY A comment No evide nce of polyp , hyper plasi a or malig stefany in the speci men submi tted. Clini jj corre latio n/fol low-u p is recom kristyn d. Not Available [facility] [address] [place], [address], 04/29/2024 19:07:13 04/26/20 24 04/26/2024 pregn stephanie test, urine HCG negati ve Not Available [facility] [address] [place], [address], 04/24/2024 22:43:10 07/19/19 25 07/20/2024 HEMOG LOBIN A1C hemoglobin A1C 6.0 % <5.7 high The refer ence range for HbA1c is indic ated in the table below . Sugge sted Diagn osis =6.5% Consi stent with diabe aisha 5.7 6.4% Consi stent with incre ased risk for diabe aisha (pred iabet ic) <5.7% Consi stent with the absen ce of diabe aisha Not Available [facility] [address] [place], [address], 07/20/2024 11:38:30 07/19/19 25 07/20/2024 COMPR EHENS JAY JAY METAB OLIC PANEL sodium 138 mmol/ L 136 - 145 normal Not Available [facility] [address] [place], [address], 07/20/2024 11:38:30 07/19/19 25 07/20/2024 COMPR EHENS JAY JAY METAB OLIC PANEL potassium 4.4 mmol/ L 3.5 - 5.1 normal Not Available [address], [address], 07/20/2024 11:38:30 07/19/19 25 07/20/2024 COMPR EHENS JAY JAY METAB OLIC PANEL chloride 101 mmol/ L 98 - 107 normal Not Available [address], [address], 07/20/2024 11:38:30 07/19/19 25 07/20/2024 COMPR EHENS JAY JAY METAB OLIC PANEL glucose 197 mg/dL 74 - 106 high Not Available [address], [address], 07/20/2024 11:38:30 07/19/19 25 07/20/2024 COMPR EHENS JAY JAY METAB OLIC PANEL carbon dioxide 27 mmol/ L 20 - 32 normal Not Available [address], [address], 07/20/2024 11:38:30 07/19/19 25 07/20/2024 COMPR EHENS JAY JAY METAB OLIC PANEL calcium 9.3 mg/dL 8.5 - 10.1 normal Not Available [address], [address], 07/20/2024 11:38:30 07/19/19 25 07/20/2024 COMPR EHENS JAY JAY METAB OLIC PANEL creatinine 0.70 mg/dL 0.60 - 1.00 normal Not Available [address], [address], 07/20/2024 11:38:30 07/19/19 25 07/20/2024 COMPR EHENS JAY JAY METAB OLIC PANEL eGFR 107 mL/mi n/1.7 3m2 >60 normal The eGFR is based on the CKD-E PI 2020 equat ion. To calcu late the new eGFR from a previ ous Creat inbakari or Liya hunt C keely jiang, go to https ://nico sprague rg/pr lazaroess ional s/kdo qi/gf r_cal culat or Not Available [address], [address], 07/20/2024 11:38:30 07/19/19 25 07/20/2024 COMPR EHENS JAY JAY METAB OLIC PANEL AST 19 U/L 15 - 37 normal Not Available [address], [address], 07/20/2024 11:38:30 07/19/19 25 07/20/2024 COMPR EHENS JAY JAY METAB OLIC PANEL ALT 27 U/L 14 - 59 normal Not Available [address], [address], 07/20/2024 11:38:30 07/19/19 25 07/20/2024 COMPR EHENS JAY JAY METAB OLIC PANEL alk phos 113 U/L 46 - 116 normal Not Available [address], [address], 07/20/2024 11:38:30 07/19/19 25 07/20/2024 COMPR EHENS JAY JAY METAB OLIC PANEL albumin 3.8 g/dL 3.4 - 5.0 normal Not Available [address], [address], 07/20/2024 11:38:30 07/19/19 25 07/20/2024 COMPR EHENS JAY JAY METAB OLIC PANEL protein, total 7.1 g/dL 6.4 - 8.2 normal Not Available [address], [address], 07/20/2024 11:38:30 07/19/19 25 07/20/2024 COMPR EHENS JAY JAY METAB OLIC PANEL bilirubin, total 0.2 mg/dL 0.2 - 1.0 low Not Available [address], [address], 07/20/2024 11:38:30 07/19/19 25 07/20/2024 COMPR EHENS JAY JAY METAB OLIC PANEL urea nitrogen (BUN) 8 mg/dL 7 - 18 normal Not Available [facility] [address] [place] [address], [address], 07/20/2024 11:38:30 07/19/19 25 07/20/2024 CBC (INCL UDES DIFF/ PLT) WBC 10.1 thous and/u L 4.0 - 9.8 high Not Available [address], [address], 07/20/2024 15:32:59 07/19/19 25 07/20/2024 CBC (INCL UDES DIFF/ PLT) RBC 5.0 shaniqua on/uL 3.9 - 4.9 high Not Available [address], [address], 07/20/2024 15:32:59 07/19/19 25 07/20/2024 CBC (INCL UDES DIFF/ PLT) hemoglobin 13.9 g/dL 11.8 - 14.8 normal Not Available [address], [address], 07/20/2024 15:32:59 07/19/19 25 07/20/2024 CBC (INCL UDES DIFF/ PLT) hematocrit 45.4 % 35.5 - 44.0 high Not Available [address], [address], 07/20/2024 15:32:59 07/19/19 25 07/20/2024 CBC (INCL UDES DIFF/ PLT) MCV 90.8 fL 82.0 - 99.0 normal Not Available [address], [address], 07/20/2024 15:32:59 07/19/19 25 07/20/2024 CBC (INCL UDES DIFF/ PLT) MCH 27.8 pg 27.2 - 32.6 normal Not Available [address], [address], 07/20/2024 15:32:59 07/19/19 25 07/20/2024 CBC (INCL UDES DIFF/ PLT) MCHC 30.6 g/dL 31.5 - 35.5 low Not Available [address], [address], 07/20/2024 15:32:59 07/19/19 25 07/20/2024 CBC (INCL UDES DIFF/ PLT) RDW-CV 18.0 % 11.5 - 14.5 high Not Available [address], [address], 07/20/2024 15:32:59 07/19/19 25 07/20/2024 CBC (INCL UDES DIFF/ PLT) platelet ---- thous and/u L low COMME NT: PLT = Exces s plate let clump s on smear revie w. Unabl e to repor t plate let count or MPV. Not Available [address], [address], 07/20/2024 15:32:59 07/19/19 25 07/20/2024 CBC (INCL UDES DIFF/ PLT) MPV ---- fL normal Not Available [address], [address], 07/20/2024 15:32:59 07/19/19 25 07/20/2024 CBC (INCL UDES DIFF/ PLT) absolute neutrophil 7.41 thous and/u L 1.90 - 7.00 high Not Available [address], [address], 07/20/2024 15:32:59 07/19/19 25 07/20/2024 CBC (INCL UDES DIFF/ PLT) absolute lymphocyte 1.49 thous and/u L 0.70 - 4.50 normal Not Available [address], [address], 07/20/2024 15:32:59 07/19/19 25 07/20/2024 CBC (INCL UDES DIFF/ PLT) absolute monocyte 0.65 thous and/u L 0.10 - 1.30 normal Not Available [address], [address], 07/20/2024 15:32:59 07/19/19 25 07/20/2024 CBC (INCL UDES DIFF/ PLT) absolute eosinophil 0.34 thous and/u L <0.70 normal Not Available [address], [address], 07/20/2024 15:32:59 07/19/19 25 07/20/2024 CBC (INCL UDES DIFF/ PLT) absolute basophil 0.16 thous and/u L <0.20 normal Not Available [address], [address], 07/20/2024 15:32:59 07/19/19 25 07/20/2024 CBC (INCL UDES DIFF/ PLT) absolute immature granulocyte 0.02 thous and/u L <0.03 normal Not Available [address], [address], 07/20/2024 15:32:59 Result Notes None recorded. Problems Name Problem SNOMED Code Status Onset Date Resolution Date Notes Provider Name and Address Organization Details Recorded Time Uterine leiomyoma 02773092 Active 2019 Leiomyoma of uterus, unspecifie d; Progress: Stable Added By: Taina Benavides Add to Current Problems: YES ProblemSta tus: Current Not Available [facility] 16:54:40 Problem Notes None recorded. Procedures Surgical History Date Name Laterality Status Provider Name and Address Organization Details Recorded Time 024 hysterectomy completed Katerin Barksdale MD [address] [place] [address], [phone], [facility] 07/19/2024 09:13:43 024 Endometrial Biopsy completed Katerin Barksdale MD [address] [place] [address], [phone], [facility] [employer] 04/26/2024 09:59:09 022 Date of Last Pap Smear completed Joann Frias [facility] [email or web address] [facility] 07/01/2023 18:47:43 022 Most Recent Mammogram completed Joann [facility] [employer] 07/01/2023 18:47:43 hemorrhoidectomy completed Sam Sharma [facility] [employer] 12/26/2023 12:01:30 Myomectomy abdom method completed Haylee Lovett [facility] [employer] 08/26/2021 13:00:57 Imaging Results None recorded. Procedure Notes None recorded. Medical Equipment None Reported. Allergies Allergen ID Allergen Name Allergen Category Reaction Reaction Severity Criticality Documentation Date Start Date Code Code System Note Provider Name and Address Organization Details Recorded Time 184876 niacin medicatio n rash moderate Not available 03/29/20212019 7393 RxNorm React ion: Rash; Sever ity: Moder ate; Not Available [employer] 01:20:33 Medications Name Sig Start Date Stop Date Status Note LastModified by Organization Details LastModified Time atorvasta tin 40 mg tablet TAKE 1 TABLET BY MOUTH EVERY DAY AT BEDTIME active Not Available Not Available No t Available azithromy andry 250 mg tablet TAKE 2 TABLETS BY MOUTH FOR 1 DAY THEN TAKE 1 TABLET BY MOUTH DAILY FOR 4 DAYS 09/09 completed Not Available Not Available Not Available paroxetin e 20 mg tablet active Not Available Not Available Not Available lisinopri l 10 mg tablet TAKE 1 TABLET BY MOUTH DAILY 06/18 completed Not Available Not Available Not Available ergocalci ferol (vitamin D2) 1,250 mcg (50,000 unit) capsule TAKE 1 CAPSULE BY MOUTH 1 TIME A WEEK FOR 8 DOSES 09/09 completed Not Available Not Available Not Available Novolog U-100 Insulin aspart 100 unit/mL subcutane ous solution ADMINIST ER 10 UNITS UNDER THE SKIN DAILY WITH SUPPER 12/25 completed Not Available Not Available Not Available ibuprofen 600 mg tablet Take 1 tablet 4 times a day by oral route as needed. active Not Available Not Available No t Available metformin ER 500 mg tablet,ex tended release 24 hr TAKE 2 TABLETS BY MOUTH TWICE DAILY active Not Available Not Available No t Available oxycodone 5 mg tablet 06/18 completed Not Available Not Available Not Available Novolog PenFill U-100 Insulin aspart 100 unit/mL subcutane ous cartridg inject by subcutan eous route per prescrib er's instruct ions. Insulin dosing requires individu alizatio n. 09/09 completed NovoLOG PenFill U-100 Insulin 100 unit/mL subcutan eous Cartridg e RxNorm: 4732802 Refill Denied: No Refill DateOccu rred: 05/17/20 Edited by: Taina Garcia) on 05/17/20 Stopped by: Taina Garcia) on Not Available Not Available Not Available Novolog FlexPen U-100 Insulin aspart 100 unit/mL (3 mL) subcutane ous INJECT 5 UNITS SUBCUTAN EOUSLY THREE TIMES DAILY active Not Available Not Available No t Available metformin 12/25 completed metFORMI N RxNorm: [id number] Refill Denied: No Refill DateOccu rred: 05/17/20 Edited by: Taina Garcia) on 05/17/20 Stopped by: Taina Garcia) on Not Available Not Available Not Available BD Ultra-Fin e Short Pen Needle 31 gauge x 5/16 USE ONCE DAILY 04/24 completed Not Available Not Available Not Available Senna with Docusate Sodium 8.6 mg-50 mg tablet Take 1 tablet twice a day by oral route for 10 days, for preventi on of postoper ative constipa tion. 06/18 completed Not Available Not Available Not Available tranexami c acid 650 mg tablet TAKE 2 TABLETS BY MOUTH THREE TIMES DAILY FOR 5 DAYS 05/18 completed Not Available Not Available Not Available Humulin N NPH U-100 Insulin KwikPen 100 unit/mL (3 mL) subcutane ous inject by subcutan eous route per prescrib er's instruct ions. Insulin dosing requires individu alizatio n. 09/09 completed insulin NPH isoph U-100 human 100 unit/mL (3 mL) subcutan eous Insulin Pen RxNorm: [id number] Refill Denied: No Refill DateOccu rred: 05/17/20 Edited by: Taina Garcia) on 05/17/20 Stopped by: marco( Taina Benavides) on Not Available Not Available Not Available Jardiance 25 mg tablet TAKE 1 TABLET BY MOUTH DAILY 05/18 completed Not Available Not Available Not Available Tresiba FlexTouch U-100 insulin 100 unit/mL (3 mL) subcutane ous pen INJECT 24 UNITS UNDER THE SKIN DAILY active Not Available Not Available No t Available OneTouch Ultra2 Meter USE DIRECTED 04/24 completed Not Available Not Available Not Available Baqsimi 3 mg/actuat ion nasal spray 12/25 completed Not Available Not Available Not Available ID NOW COVID-19 Test Kit TEST DIRECTED TODAY 12/25 completed Not Available Not Available Not Available Mounjaro 5 mg/0.5 mL subcutane ous pen injector 12/25 completed Not Available Not Available Not Available FreeStyle Elvi 3 Sensor device USE TO MONITOR GLUCOSE 04/24 completed Not Available Not Available Not Available Vitals Date Recorded Body height Body mass index (BMI) Body weight Systolic blood pressure Diastolic blood pressure Provider Name and Address Organization Details Last Updated DateTime 12/26/2023 154.94 cm 27.9 kg/m2 69013.95 g 102 mm[Hg] 72 mm[Hg] Sam Sharma [facility] 4 11:59:39 Date Recorded Body height Body mass index (BMI) Body weight Systolic blood pressure Diastolic blood pressure Provider Name and Address Organization Details Last Updated DateTime 04/26/2024 154.94 cm 28 kg/m2 71286.67 g 118 mm[Hg] 76 mm[Hg] [facility] 4 09:29:08 Date Recorded Body height Body mass index (BMI) Body weight Systolic blood pressure Diastolic blood pressure Provider Name and Address Organization Details Last Updated DateTime 05/18/2024 154.94 cm 29.3 kg/m2 12458.82 g 118 mm[Hg] 74 mm[Hg] [facility] 4 09:58:27 Date Recorded Body height Body mass index (BMI) Body weight Systolic blood pressure Diastolic blood pressure Provider Name and Address Organization Details Last Updated DateTime 06/18/2024 154.94 cm 28 kg/m2 49089.67 g 118 mm[Hg] 80 mm[Hg] Anitha Pepe [employer] [facility] 5 13:20:40 Date Recorded Body height Body mass index (BMI) Body weight Systolic blood pressure Diastolic blood pressure Provider Name and Address Organization Details Last Updated DateTime 07/19/2024 154.94 cm 28.6 kg/m2 16851.17 g 120 mm[Hg] 80 mm[Hg] Edgar Pizarro [employer] 5 09:56:30 Social History Question Answer Notes LastModified by [employer] Details LastModified Time Tobacco Smoking Status Current Every Day Smoker Joann Arnoldmartínez knight, [facility] 07/01/2023 18:47:44 How Many Years Have You Consumed Alcohol? 20 Information not available 07/01/2023 Are You Blind Or Do You Have Difficulty Seeing? No Information not available 07/01/2023 Are You Deaf Or Do You Have Serious Difficulty Hearing? No Information not available 07/01/2023 What Type Of Diet Are You Following? REGULAR Information not available 07/01/2023 How Many Children Do You Have? 0 Information not available 07/01/2023 Are There Any Occupational Health Risks Where You Work? No Information not available 07/01/2023 What Is Your Relationship Status? Information not available 07/01/2023 Are You Sexually Active? Yes Information not available 07/01/2023 At What Age Did You Start Smoking Tobacco? 13 Information not available 07/01/2023 How Much Tobacco Do You Smoke? 0.5 PPD Information not available 07/01/2023 What Types Of Sporting Activities Do You Participate In? None Information not available 07/01/2023 How Many Years Have You Smoked Tobacco? 20 Information not available 07/01/2023 Sex: Unknown Functional Status Question Answer Note LastModified by Organizat ion Details LastModified Time Do you use any illicit or recreational drugs? No Information not available 07/01/2023 What is your level of alcohol consumption? Moderate Information not available 07/01/2023 Are you currently employed? Yes Information not available 07/01/2023 Mental Status None recorded. Family History Relationship Description Onset Age of this Age Resolved Age Notes LastModified by Organization Details LastModified Time Paternal Aunt Malignant tumor of breast Not available 2023 18:47:43 Father Cerebrovascu lar accident [email or web address] Not available 0 08/26/2021 13:01:17 Father Type 2 diabetes mellitus Not available 2023 18:47:43 Mother Type 2 diabetes mellitus Not available 2023 18:47:43 Sister Hypothyroidi sm [email or web address] Not available 08/07 13:01:42 Unspecified Relation Malignant tumor of breast Not available 2023 18:47:43 Medical History Condition Response Other Cancer N High Blood Pressure Y Colon Cancer N Cytomegalovirus N Hyperthyroidism N Breast Cancer N Herpes (HSV) N MRSA N Blood Transfusion N Lung Cancer N Depression N Hypothyroidism N Incontinence N Panic Attacks N Neurological Disorder N Deep Vein Thrombosis N Anxiety Disorder N Autoimmune disease N Arthritis N Tuberculosis/Positive PPD N Shingles N Polycystic Ovarian Syndrome N Infertility N Cervical Cancer N Hematuria N Chlamydia N Varicosities N Stroke N Crohn's Disease N Seasonal allergies N Alzheimer's/Dementia N COPD/Emphysema N HPV/Genital Warts N Endometriosis N IBS (Irritable Bowel Syndrome) N History of Abnormal Pap N High Cholesterol N Liver Disease N Fibromyalgia N Kidney Infection N Ulcer N Kidney Disease N HIV N Gallbladder disease N Von Willebrand disease N Sickle Cell Disease/Trait N ADD/ADHD N Eating Disorder N Diabetes Mellitus (non-insulin dependent ) N Anemia N Ovarian Problems N Multiple Sclerosis N Gonorrhea N Frequent Urinary Tract infections N Osteopenia N Headaches/migraines N GERD (reflux) N Ovarian Cancer N Diabetes (insulin dependent) N Seizures/Epilepsy N Breast Problems N Fibroids N Asthma N Heart Attack N Endometrial Cancer N Lupus N Rubella N Blood Clotting Disorder N Bipolar Disorder N Diabetes Mellitus (during ) N Ulcerative Colitis N Hepatitis N Heart Disease N Pulmonary Embolism N RPR N Chicken Pox N Osteoporosis N Gynecological History Statement/Question Response Flow Heavy Date of last HPV 06/08/2021 Date of LMP 05/17/2024 HPV Vaccine N Duration of Flow (days) 8 Most Recent Mammogram 06/08/2021 Current Control Method Hysterectom y Age at Menarche 13 Date of Last Colonoscopy Most Recent Bone Density Frequency of Cycle (Q days) 14 Date of Last Pap Smear 06/08/2021 Obstetrics History GPAL:G 0 P 0 0 0 0 Past Encounters Encounter ID Performer Location Encounter Start Date Encounter Closed Date Diagnosis/Indication Diagnosis SNOMED-CT Code Diagnosis ICD10 Code Diagnosis Note [id number] EMELI Zamora [facility] [address] [place] [address] 07/01/2023 18:37:46 07/08/2023 15:22:10 Disorder of menstruation 740914931 N92.6 Discussed the various causes of abnormal uterine bleeding, including polyps, fibroids, hyperplasi a, atypia, anovulatio n, etc. Reviewed the typical evaluation with pelvic US and endometria l biopsy. Biopsy procedure reviewed in detail. Recommende d premedicat ion with NSAIDs.Clarisa efly discussed the options available for treatment (depending on the results of evaluation ) such as hormonal treatment (OCPs, progestins ), Mirena, endometria l ablation, and surgery. Discussed perimenopa usal pathophysi ology behind abnormal bleeding. Discussed natural process of missing ovulation occasional ly therefore leading to abnormal and unpredicta ble bleeding. If the abnormal bleeding is excessive (more than 7 days, occurring closer than every 21 days routinely, or bleeding through a pad/hour more than 4 hours consistent ly) then hormonal contracept jay jay or ablation may need to be considered . All of the patient's questions answered to fullest extent today. [id number] EMELI Zamora [facility] [address] [place] [address] 09/10/2023 10:09:20 09/10/2023 17:42:04 Irregular periods [id number] N92.6 US shows a 10 cm fibroid.Wi schedule an appointmen t with physician to discuss management . 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
--- OUTSIDE RECORDS SUMMARY | 2024-10-17 20:55 | XMS_ITS | Encounter Summary ---
Author Organization [facility] Address [facility] [place] [address] Care Team Providers Care Node Js Developer Name Role Phone Sarita Liang GIOVANI Primary Care Provider [phone] Encounter Details Date Type Department Care Team (Late st Contact Info) Description 02/04/2022 Red's All natural Message Enc [facility] Family Medicine [address] [address] [facility] Provider Appointment Request Social History Tobacco Use Types Packs/Day Years Used Date Smoking Tobacco: Some Days Cigarettes 0.5 15 Smokeless Tobacco: Never Alcohol Use Standard Drinks/Week Comments Yes 8 (1 standard drink = 0.6 oz pur e alcohol) socially PHQ-2 Answer Date Recorded PHQ-2 Score - If the patient scores above 3, please move on to questions 3-9 0 02/04/2022 Comments No Sex and Gender Information Value Date Recorded Sex Assigned at Female 09/09/2024 9:49 AM CDT Legal Sex Female 8:01 PM CDT Gender Identity Female 09/09/2024 9:49 AM CDT Sexual Orientation Not on file COVID-19 Exposure Response Date Recorded In the last 10 days, have yo u been in contact with someone who was confirmed or suspected to have Coronavirus/COVID-19? No / Unsure 02/04/2022 7:55 AM CDT documented as of this encounter Progress Notes * Chris Lopez RN - 02/05/2022 8:46 AM CDT Spoke with patient and informed her it has almost been 2 years since we have seen her. Pt states she will call us back once she gets to work to look at a calendar to schedule. documented in this encounter Plan of Treatment Upcoming Encounters Date Type Department Care Team (Late st Contact Info) Description 12/14/2024 8:00 AM CDT Office Visit [facility] Family Medicine - [place] [address] [place] [phone] Sar[place] [address] documented as of this encounter Visit Diagnoses Not on filedocumented in this encounter Additional Health Concerns Assessment Noted Time PHQ-9 Depression Total Score: 0 02/01/20 21 4:08 PM CDT documented as of this encounter Care Teams Node Js Developer Relationship Specialty Start Date End Date Sarita Liang NP [address] [place] [address] PCP - General NURSE PRACTITIONER 11/23/19 documented as of this encounter
[2024-10-17 21:31] VITALS: BP 111/85; PULSE 88; RESP 17; O2SAT 97
--- OUTSIDE RECORDS SUMMARY | 2024-10-17 21:50 | XMS_ITS | Encounter Summary ---
Author Organization [facility] Address [facility] [place] [address] Care Team Providers Care Power Plant Assistant Name Role Phone Sarita Liang GIOVANI Primary Care Provider [phone] Encounter Details Date Type Department Care Team (Late st Contact Info) Description 02/04/2022 FID3 Message Enc [facility] Family Medicine [address] [address] [facility] Provider Appointment Request Social History Tobacco Use [...] Description 12/14/2024 8:00 AM CDT Office Visit [facility] Family Medicine - [place] [address] [place] [phone] Sarita Li[place] [address] documented as of this encounter Visit Diagnoses Not on filedocumented in this encounter Additional Health Concerns Assessment Noted Time PHQ-9 Depression Total Score: 0 02/01/20 21 4:08 PM CDT documented as of this encounter Care Teams Power Plant Assistant Relationship Specialty Start Date End Date Sarita Liang NP [address] [place] [address] PCP - General NURSE PRACTITIONER 11/23/19 documented as of this encounter
--- OUTSIDE RECORDS SUMMARY | 2024-10-17 21:50 | XMS_ITS | Clinical Summary ---
Author Organization [facility] Address [address] [place] [address] Care Team Providers Care Break Out Worker Name Role Phone Sarita Liang GIOVANI Primary Care Provider [phone] Denver Trinidad DO Unavailable [phone] Allergies Active Allergy Reactions Criticality Noted Date [...] uit: Not Asked; Counseling Given: Not Answered [facility] Financial Guardities Answer Date Recorded In the past 12 months has e [employer], gas, oil, or water [employer] threatened to shut off services in your [...] often do you attend chur ch or yazdanism services? 1 to 4 times per year 05/27/2024 Do you belong to any clubs o r organizations such as faith groups, unions, fraternal or athletic groups, or [...] any time in the past 12 m [facility], were you homeless or living in a longterm (including now)? No 05/27/2024 Personal Safety Answer Date Recorded Have you ever been in or are you currently in a harmful physical or emotional relationship or is someone making you feel afraid or unsafe? Denies 05/26/2024 Comments No Sex and Gender Information Value Date Recorded Sex Assigned at Not on file Legal Sex Female 10:04 AM LENS GRINDER AND POLISHER Gender Identity Female 05/24/2024 8:43 AM LENS GRINDER AND POLISHER Sexual Orientation Not on file Obstetrics History Last Filed Vital Signs Vital Sign Reading Time Taken Comments Blood Pressure 130/75 05/28/2024 8:31 AM LENS GRINDER AND POLISHER Pulse 70 05/28/2024 5:00 AM LENS GRINDER AND POLISHER Temperature 37.1 C (98.8 F) 05/28/2024 8:31 AM LENS GRINDER AND POLISHER Respiratory Rate 18 05/28/2024 8:31 AM LENS GRINDER AND POLISHER Oxygen Saturation 97% 05/28/2024 8:31 AM LENS GRINDER AND POLISHER Inhaled Oxygen Concentration - - Weight 68.6 kg (151 lb 3.8 oz) 05/26/2024 3:59 P M LENS GRINDER AND POLISHER Height 154.9 cm (5' 1 ) 05/26/2024 3:59 PM LENS GRINDER AND POLISHER Body Mass Index 28.58 05/26/2024 3:59 PM LENS GRINDER AND POLISHER Plan of Treatment Health Maintenance Due Date [...] Diagnosis Comments EGFR Routine 05/27/2024 4:21 AM LENS GRINDER AND POLISHER HEMOGLOBIN A1C Routine 05/23/2024 10:03 AM LENS GRINDER AND POLISHER Preop testing from Last 3 Months or Most Recently Relevant to Health Maintenance Results * eGFR (05/27/2024 4:21 AM LENS GRINDER AND POLISHER) eGFR >90 >=60 mL/min/1. 73 m2 Comment: [...] was last reviewed 2021. Testing performed by: [address] [address] Blood 05/27/2024 4:21 AM LENS GRINDER AND POLISHER 05/27/2024 4:50 AM LENS GRINDER AND POLISHER us Katerin Barksdale MD LAB BLOOD ORDERABLES Amber l Result [facility] [address] [facility] Department [place] [address] * (ABNORMAL) Hemoglobin A1c (05/23/2024 10:03 AM LENS GRINDER AND POLISHER) Hgb A1C 6.6(H) 4.0 - 5.6 % Comment:Testing performed by : [address] [address] Estimated Average Glucose 143 mg/dL RABIA Comment: The ADA recommends reporting an estimated Average Glucose (eAG) with all Hemoglobin A1c results using the equation derived from a study of 507 normal and diabetic adults. Minority populations were underrepresented and children were not included. (Diabetes Care 31:7145-9456, 2007). The eAG is not equivalent to a fasting glucose. Testing performed by: [facility], [address] [place] [address], [place]., [address] Blood 05/23/2024 10:0 3 AM LENS GRINDER AND POLISHER 05/23/2024 10:15 AM LENS GRINDER AND POLISHER May RICARDO - 05/23/2024 10:58 AM LENS GRINDER AND POLISHER PRE SURGICAL TESTING ONLY--05/26/2024-TOTAL ABDOMINAL HYSTERECTOMY WITH BILATERAL SALPINGECTOMY: -Surgeons and Role: * Katerin Barksdale MD - Primary- us Joaquin Cuellar MD LAB BLOOD ORDERABLES Final Resul t RABIA [address] [facility] Department [place] [address] from Last 3 Months or Most Recently Relevant to Health Maintenance Insurance [place] Advance Directives For more information, please contact: [phone] Documents on File Type Date Recorded Patient Chin Strap Sewer Expl anation ADVANCE DIRECTIVE 05/26/2024 9:58 AM Sharif r of Rotary Slicing Machine Operator-Medical * Full Code (Latest Code Status on File) Date Activated Date Inactivated Comments 05/26/2024 3:49 PM 05/28/2024 2:48 PM Care Teams Break Out Worker Relationship Specialty Start Date End Date [place] [address] PCP - General Field Interviewer 05/23/24 Denver [place] [address] [address] [address] 05/13/24
--- OUTSIDE RECORDS SUMMARY | 2024-10-17 21:50 | XMS_ITS | Clinical Summary ---
Author Organization [facility] Address [facility] [place] [address] Care Team Providers Care Cloth Dyer Name Role Phone Gladys Liang GIOVANI Primary Care Provider [phone] Allergies Active Allergy Reactions Criticality Noted Date [...] Uncontrolled type 2 diabetes mellitus with hyperglycemia ([facility]) 12/13/2018 [id number] 11/25/2018 Intramural leiomyoma of uterus 03/01/2018 S/P [...] neoplasm of breast 04/24/2016 02/24/2022 Diabetes mellitus ([facility]) 04/12/2014 07/23/2022 Encounters Date Type Department Care Team Description 09/09/2024 9:40 AM CDT Office Visit [address] [address] Gladys Liang NP Shoulder (Pt c/o of collar bone pain for about two weeks. 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 and has been having the pain since) 09/09/2024 Travel 09/06/[address] [address] Gladys Liang NP Information from [...] Description 12/14/2024 8:00 AM CDT Office Visit [facility] Family Medicine - [place] [address] [place] [address] Gladys Liang NP [address] [place] [address] Health Maintenance Due Date Last Done Comments [...] C Completed 04/24/2016, 04/08, 04/11/2015 PHQ-2 (Physician [place]) Completed 09/09/2024 Meningococcal B Vaccine Aged Out [...] Comments LIPID PANEL Routine 06/18/2023 9:51 AM CARDIOTHORACIC PHYSIOTHERAPIST Uncontrolled type 2 diabetes mellitus with hyperglycemia Other fatigue HEMOGLOBIN, GLYCOSYLATED Routine 06/18/2023 Uncontrolled type 2 diabetes mellitus with hyperglycemia MG SCREENING W SHAHEED HENRY DIGI Routine 04/26/2022 11:14 AM CARDIOTHORACIC PHYSIOTHERAPIST Encounter for screening mammogram for malignant neoplasm of breast HEPATITIS C ANTIBODY Routine 04/24/2016 9:30 AM CARDIOTHORACIC PHYSIOTHERAPIST from Last 3 Months or Most Recently Relevant to Health Maintenance Results * (ABNORMAL) LIPID PANEL (06/18/2023 9:51 AM CARDIOTHORACIC PHYSIOTHERAPIST) CHOLESTEROL 145 100 - 199 mg/dL [facility] TRIGLYCERIDES 162(H) 0 - 149 mg/dL [facility] 1 HDL 41 >39 mg/dL [facility] 1 VLDL CALCULATION 28 5 - 40 mg/dL [facility] 1 LDL (CALCULATED) 76 0 - 99 mg/dL [facility] 1 06/18/2023 9:51 AM CARDIOTHORACIC PHYSIOTHERAPIST 06/18/2023 Narrative [facility] - 06/20/2023 2:09 PM CARDIOTHORACIC PHYSIOTHERAPIST Performed at: 01 - [facility] [address] [id number] Fire Protection Engineering Technician: Chip Ayala PhD, Phone: [phone] Gladys Liang NP LABORATORY Final Result [facility] [address] [place] [address] [facility] 1 * A1C (BACK OFFICE) (06/18/2023) HGB A1C 6.4 % [facility] 06/18/2023 Gladys Liang NP LABORATORY Final Result Performing Organization Address City/[facility]/ZIP Co de Phone Number [facility] [address] [place] [address], [place] [phone] * MG SCREENING W SHAHEED HENRY DIGI (04/26/2022 11:14 AM CARDIOTHORACIC PHYSIOTHERAPIST) Anatomical Region Laterality Modality Breast Bilateral Mammography 04/28/2022 10:2 8 AM CARDIOTHORACIC PHYSIOTHERAPIST Narrative 04/28/2022 10:28 AM CARDIOTHORACIC PHYSIOTHERAPIST EXAMINATION: Digital bilateral screening mammogram with 3-D [...] * HEPATITIS C ANTIBODY (04/24/2016 9:30 AM CARDIOTHORACIC PHYSIOTHERAPIST) HEPATITIS C AB NON-REACTIVE TESTING PERFORMED AT [address] [address] NR [facility] EPIC CONVERSION 04/24/2016 9:30 AM CARDIOTHORACIC PHYSIOTHERAPIST 04/24/2016 9:30 AM CARDIOTHORACIC PHYSIOTHERAPIST Narrative [facility] CONVERSION - 04/25/2016 5:52 PM CARDIOTHORACIC PHYSIOTHERAPIST Result Communication: Call patient with results Gladys Liang SAFETY COMPLIANCE SPECIALIST LABORATORY Final Result [facility] TO EPIC CONVERSION from Last 3 Months or Most Recently Relevant to Health Maintenance Insurance [facility] Care Teams Cloth Dyer Relationship Specialty Start Date End Date Gladys Liang [place] [address] PCP - General NURSE PRACTITIONER 11/23/19
--- OUTSIDE RECORDS SUMMARY | 2024-10-17 21:50 | XMS_ITS | Referral Summary ---
Author Organization [facility] Address [address] [place] [address] Care Team Providers Care Safety And Occupational Health Manager Name Role Phone Sarita Liang GIOVANI Primary Care Provider [phone] Denver Trinidad DO Unavailable [phone] Allergies Active Allergy Reactions Criticality Noted Date [...] uit: Not Asked; Counseling Given: Not Answered [facility] K1 Speed Answer Date Recorded In the past 12 months has [employer], gas, oil, or water [employer] threatened to shut off services in your [...] How often do you attend chur or zoroastrianism services? 1 to 4 times per year 05/27/2024 Do you belong to any clubs o r organizations such as oriental orthodox groups, unions, fraternal or athletic groups, or [...] any time in the past 12 m [facility], were you homeless or living in a long-term (including now)? No 05/27/2024 Personal Safety Answer Date Recorded Have you ever been in or are you currently in a harmful physical or emotional relationship or is someone making you feel afraid or unsafe? Denies 05/26/2024 Comments No Sex and Gender Information Value Date Recorded Sex Assigned at Not on file Legal Sex Female 10:04 AM SALES ACCOUNT COORDINATOR Gender Identity Female 05/24/2024 8:43 AM SALES ACCOUNT COORDINATOR Sexual Orientation Not on file Last Filed Vital Signs Vital Sign Reading Time Taken Comments Blood Pressure 130/75 05/28/2024 8:31 AM SALES ACCOUNT COORDINATOR Pulse 70 05/28/2024 5:00 AM SALES ACCOUNT COORDINATOR Temperature 37.1 C (98.8 F) 05/28/2024 8:31 AM SALES ACCOUNT COORDINATOR Respiratory Rate 18 05/28/2024 8:31 AM SALES ACCOUNT COORDINATOR Oxygen Saturation 97% 05/28/2024 8:31 AM SALES ACCOUNT COORDINATOR Inhaled Oxygen Concentration - - Weight 68.6 kg (151 lb 3.8 oz) 05/26/2024 3:59 P M SALES ACCOUNT COORDINATOR Height 154.9 cm (5' 1 ) 05/26/2024 3:59 PM SALES ACCOUNT COORDINATOR Body Mass Index 28.58 05/26/2024 3:59 PM SALES ACCOUNT COORDINATOR Plan of Treatment Not on file Procedures Procedure Name Priority Date/Time Associated Diagnosis Comments EGFR Routine 05/27/2024 4:21 AM SALES ACCOUNT COORDINATOR HEMOGLOBIN A1C Routine 05/23/2024 10:03 AM SALES ACCOUNT COORDINATOR Preop testing from Last 3 Months or Most Recently Relevant to Health Maintenance Results * eGFR (05/27/2024 4:21 AM SALES ACCOUNT COORDINATOR) eGFR >90 >=60 mL/min/1. 73 m2 Comment: [...] was last reviewed 2021. Testing performed by: [facility], [address] [place] [address], [place]., [address] Blood 05/27/2024 4:21 AM SALES ACCOUNT COORDINATOR 05/27/2024 4:50 AM SALES ACCOUNT COORDINATOR Katerin Barksdale MD LAB BLOOD ORDERABLES Amber l Result Performing Organization Address [facility]/ZIP Co de Phone Number [address] [place] [address] * (ABNORMAL) Hemoglobin A1c (05/23/2024 10:03 AM SALES ACCOUNT COORDINATOR) Hgb A1C 6.6(H) 4.0 - 5.6 % Comment:Testing performed by : [address] [address] Estimated Average Glucose 143 mg/dL [facility] Comment: The ADA recommends reporting an estimated Average Glucose (eAG) with all Hemoglobin A1c results using the equation derived from a study of 507 normal and diabetic adults. Minority populations were underrepresented and children were not included. (Diabetes Care 31:6483-0866, 2008). The eAG is not equivalent to a fasting glucose. Testing performed by: [address] [address] Blood 05/23/2024 10:0 3 AM SALES ACCOUNT COORDINATOR 05/23/2024 10:15 AM SALES ACCOUNT COORDINATOR Narrative [facility] - 05/23/2024 10:58 AM SALES ACCOUNT COORDINATOR PRE SURGICAL TESTING ONLY--05/26/2024-TOTAL ABDOMINAL HYSTERECTOMY WITH BILATERAL SALPINGECTOMY: -Surgeons and Role: * Katerin Barksdale MD - Primary- Joaquin Cuellar MD LAB BLOOD ORDERABLES Final Resul t Performing Organization Address [facility]/ZIP Co de Phone Number [phone] [place] [address] from Last 3 Months or Most Recently Relevant to Health Maintenance Insurance [employer] [place] [facility] CHOICE [facility] PPO [place] Advance Directives For more information, please contact: [phone] Documents on File Type Date Recorded Patient Crisis Intervention Counselor Expl anation ADVANCE DIRECTIVE 05/26/2024 9:58 AM Sharif r of Client Project Coordinator-Medical * Full Code (Latest Code Status on File) Date Activated Date Inactivated Comments 05/26/2024 3:49 PM 05/28/2024 2:48 PM Care Teams Safety And Occupational Health Manager Relationship Specialty Start Date End Date Sar[place] [address] [address] [place] [address] PCP - General Correctional Lieutenant 05/23/24 Denver Trinidad DO [address] [place] [address] 05/13/24
--- OUTSIDE RECORDS SUMMARY | 2024-10-17 21:50 | XMS_ITS | Clinical Summary ---
Author Organization [facility] Address [address] [address] Care Team Providers Care Grinder Lap Name Role Phone Denver Trinidad Primary Care Provider Source Comments [facility],non-owned Affiliates and Associated Physician Practices is amultiple site organization consisting of ambulatory clinics and hospital sitesin [place], [place], [place] and [place]. This disclosure is being madepursuant to the Care Everywhere program and may not contain all information available regarding this patient. Last updated 18.[facility] Allergies Active Allergy Reactions Criticality Noted Date [...] Active Problems Problem Noted Date Diagnosed Date [id number] 11/25/2018 Intramural leiomyoma of uterus 03/01/2018 S/P [...] POINT OF CARE (03/02/2018 12:08 AM CDT) [facility] Glucose WB/POC 147(H) 70 - 106 mg/dL 03/02/2018 8:08 AM CDT [facility] Blood BLOOD SPECIMEN / Unknown 03/02/2018 12:08 AM CDT 03/02/2018 8:08 AM CDT Reinaldo Joshua MD LAB - POINT OF CARE ORDERABLES Final Result [facility] [address] [place] [address] from Last 3 Months or Most Recently Relevant to Health Maintenance Insurance ANTHEM ANTHEM Advance Directives Documents on File Type Date Recorded 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
--- NOTE | 2024-10-17 22:21 | ED_ITS ---
HPI - General Adult General Chief complaint: Extremity Problem,Nontraumatic Stated complaint: left foot is turning black Time Seen by Provider: 10/17/24 21:32 History of Present Illness HPI narrative: This is a 49-year-old female history of diabetes presenting with discoloration of her foot. Patient was on vacation in [place] over the weekend. She does not remember injuring her foot but said that she did trip at 1 point. Alcohol was involved. When she got home she noticed discoloration over the dorsum of her foot. She was concerned it might be a diabetic foot infection. She has no systemic signs of illness such as fevers chills nausea vomiting diarrhea. No breaks in the skin. Diabetes is well controlled. 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 Related Data Home Medications ?Medication ?Instructions ?Recorded ?Confirmed ?Last Taken ?Type aspirin 81 mg tablet,delayed 81 mg PO DAILY 07/15/23 10/05/24 Unknown History release (Adult Low Dose Aspirin) paroxetine HCl [Paxil] 20 tablet PO 07/15/23 10/05/24 Unknown History Allergies Allergy/AdvReac Type Severity Reaction Status Date / Time niacin Allergy Unknown Flushing Verified 10/05/24 09:13 PMFSH Past Medical History Medical History Diabetes Surgical History Surgical History H/O myomectomy Family History Family History Mother Diabetes mellitus Father Family history of colonic diverticulitis Other Cerebrovascular accident Family history of cardiovascular disease Family history of malignant neoplasm Family history of thyroid disease Social History Social History Smoking status: Current every day smoker Alcohol intake: current Alcohol use details: Twice weekly Substance use: never Do You Feel Safe in your Home?: Yes Lack of Transportation: No Lack of Food: Never True Current Housing: I Have Housing Concerned About Future Housing: No Difficulty Paying Gas/Electric Bills: No Difficulty Paying for Meds: No Currently Unemployed: YES Education: Bachelor's Degree Difficulty w/ Childcare or Family Care: No Exam Narrative: APPEARANCE: No apparent distress. Head: atraumatic. EYES: EOMI, NOSE: Atraumatic NECK: Trachea midline RESPIRATORY: No increased rate of breathing CARDIOVASCULAR: RRR, ABDOMINAL: Non-distended MUSCULOSKELETAl: No obvious deformities NEURO: Alert. Moving 4/4 extremities SKIN:: Purplish discoloration over the base of the 2nd 3rd and 4th toes. Some discoloration and swelling over the top of foot and along the lateral edge. No breaks in the skin. No warmth or induration. PSYCHIATRIC: Normal affect Course Vital Signs Vital signs: Vital Signs Pulse Rate 88 10/17/24 21:31 Respiratory Rate 17 10/17/24 21:31 Blood Pressure 111/85 10/17/24 21:31 Pulse Oximetry 97 10/17/24 21:31 Pulse Rate 88 10/17/24 21:31 Respiratory Rate 17 10/17/24 21:31 Blood Pressure 111/85 10/17/24 21:31 Pulse Oximetry 97 10/17/24 21:31 Medical Decision Making MDM Narrative Medical decision making narrative: -Course: 49-year-old female presented discoloration to her foot. Physical exam is most consistent with bruising. It does not appear to be infectious. There are no breaks in the skin or other concerns for a diabetic foot infection. She does have any systemic signs of illness. X-ray was negative for any osseous findings. The patient following up closely with primary care physician to ensure that her bruising continues to improve and that this is not an early cellulitis. Patient discharged. Given return precautions. -DDX includes but is not limited to: Bruising, occult trauma -Co-morbidities complicating care: Diabetes Vital Signs Vital Signs: Vital Signs Pulse Rate 88 10/17/24 21:31 Respiratory Rate 17 10/17/24 21:31 Blood Pressure 111/85 10/17/24 21:31 Pulse Oximetry 97 10/17/24 21:31 Pulse Rate 88 10/17/24 21:31 Respiratory Rate 17 10/17/24 21:31 Blood Pressure 111/85 10/17/24 21:31 Pulse Oximetry 97 10/17/24 21:31 Discharge Plan Discharge Clinical Impression: Discoloration of skin of foot Patient Disposition: Home Condition: Stable Instructions: Antibiotic Form, Hematoma (ED) Additional Instructions: You were seen in the emergency department for foot discoloration. Ibelieve this is bruising. Please follow-up with your primary care physician in the next 24- 48 hours to ensure that this is improving. If you develop spreading redness, swelling, fevers or blisters please return to ED for re-evaluation Patient Language: Swedish Prescriptions: No Action paroxetine HCl [Paxil] 20 tablet PO aspirin [Adult Low Dose Aspirin] 81 mg tablet,delayed release (DR/EC) 81 mg PO DAILY glucose [Dex4 Glucose] 4 gram tablet,chewable 16 g PO Q15M PRN (Reason: hypoglycemia) Qty: 60 1RF Rx Instructions: until symptoms of low blood sugar are controlled dapagliflozin propanediol [Farxiga] 10 mg tablet 10 mg PO QAM Qty: 90 4RF insulin aspart U-100 [Novolog FlexPen U-100 Insulin] 100 unit/mL (3 mL) insulin pen 5 unit subcut TID Qty: 30 1RF Rx Instructions: Take 5 units premeal 150-200: 1 units 201-250: 2 units 251-300: 3 units 301-350: 4 units 351-400: 5 units >401: 6 units (DME) FreeStyle Elvi 3 Plus Sensor Device See Rx Instructions .ROUTE .MEDSUPPLY Qty: 6 2RF Rx Instructions: Use to monitor glucose Gvoke HypoPen 2-Pack 1 mg/0.2 mL auto-injector 1 mg subcut ONCE Qty: 0.4 4RF Rx Instructions: may repeat once after 15 minutes if no response cholecalciferol (vitamin D3) 50 mcg (2,000 unit) capsule 50 mcg PO DAILY Qty: 90 1RF Rybelsus 7 mg tablet 7 mg PO DAILY Qty: 90 1RF insulin degludec [Tresiba FlexTouch U-100] 100 unit/mL (3 mL) insulin pen 24 unit SUBCUT DAILY Qty: 30 2RF lisinopril 10 mg tablet 10 mg PO DAILY Qty: 90 4RF metformin 500 mg tablet extended release 24 hr 1,000 mg PO BID Qty: 180 3RF atorvastatin 40 mg tablet 40 mg PO QHS Qty: 90 0RF (DME) pen needle, diabetic [BD Ultra-Fine Short Pen Needle] 31 gauge x 5/16 needle See Rx Instructions .Route Qty: 100 0RF Rx Instructions: As directed daily Follow-up/Referrals: Azul,STEPHEN Stein [Primary Care Provider] -
[2024-10-17 22:42] VITALS: BP 117/83; PULSE 81; RESP 15; TEMP 36.4; O2SAT 100
== END 2024-10-17 22:45 | disposition home or self-care (01) ==
PROVIDERS: Emergency Provider Emergency Medicine; PCP Nurse Practitioner
DX: S99.922A Unspecified injury of left foot, initial encounter (principal); X58.XXXA Exposure to other specified factors, initial encounter; E11.9 Type 2 diabetes mellitus without complications; Z79.82 Long term (current) use of aspirin
CPT/HCPCS: 73630; 99283